=== PATIENT | female | born 1930 | race Hispanic/Latino ===

== ENCOUNTER 2016-10-29 07:39 | Emergency (ER) | payer MEDICARE ==
[2016-10-29 07:53] VITALS: TEMP 97.9
[2016-10-29 08:48] VITALS: BP 120/74; PULSE 72; RESP 16; O2SAT 98
--- NOTE | 2016-10-29 09:07 | C.PDOC ---
History Of Present Illness 86 yr old female presents to the ER with complaints of right lower leg laceration sustained yesterday. Patient states she was walking and ran into something. States part of the wound continues to bleed on and off. Reports she is on Xarelto for A-FIb. Last tetanus was 2 years ago. Denies fever, leg pain, weakness or numbness. Time Seen by Provider: 10/29/16 08:40 Chief Complaint (Nursing): Abnormal Skin Integrity History Per: Patient History/Exam Limitations: no limitations Onset/Duration Of Symptoms: Days (1) Current Symptoms Are (Timing): Better Past Medical History Reviewed: Historical Data, Nursing Documentation, Vital Signs Vital Signs: Last Vital Signs Temp 97.9 F 10/29/16 07:52 Pulse 72 10/29/16 08:47 Resp 16 10/29/16 08:47 BP 120/74 10/29/16 08:47 Pulse Ox 98 10/29/16 09:20 - Medical History PMH: Cardia Arrhythmia, Diverticulitis (Diverticulosis), Fractures (L3-L4), HTN , Osteoporosis Family History: States: No Known Family Hx - Social History Hx Tobacco Use: No Hx Alcohol Use: Yes Hx Substance Use: No - Immunization History Hx Tetanus Toxoid Vaccination: Yes (2014) Hx Influenza Vaccination: Yes (01/2016) Hx Pneumococcal Vaccination: No Review Of Systems Except As Marked, All Systems Reviewed And Found Negative. Constitutional: Negative for: Fever Musculoskeletal: Negative for: Leg Pain Skin: Positive for: Other ((+) Laceration to the right lower leg.) Neurological: Negative for: Weakness, Numbness Physical Exam - Physical Exam Appears: Well, Non-toxic, No Acute Distress Skin: Warm, Dry, Other ((+) Right Leg - 2cm superficial laceration, most distal part with ozzing blood easyily controlled with minimal pressure. ) Head: Atraumatic, Normacephalic Chest: Symmetrical, No Tenderness Cardiovascular: Rhythm Regular, Rhythm Irregular Respiratory: Normal Breath Sounds, No Rales, No Rhonchi, No Wheezing Extremity: Normal ROM, No Calf Tenderness, No Deformity, No Swelling Pulses: Left Dorsalis Pedis: Normal, Right Dorsalis Pedis: Normal Neurological/Psych: Oriented x3, Normal Speech, Normal Motor ED Course And Treatment O2 Sat by Pulse Oximetry: 98 Progress Note: Applied dermabond to the area of bleeding. Bleeding had stopped. Wound was rechecked in 20 minuets later with no signs of active bleeding. Steri strips and bandages were applied. Patient instructed to follow up with PMD for a wound check. Disposition - Disposition Referrals: Candelario Bradshaw, [Non-Staff] - Disposition: HOME/ ROUTINE Disposition Time: 08:30 Condition: GOOD Additional Instructions: Thank you for letting us take care of you today. Your provider was Dr. Landaverde. You were treated for a leg laceration. The emergency medical care you received today was directed at your acute symptoms. If you were prescribed any medication, please fill it and take as directed. It may take several days for your symptoms to resolve. Return to the Emergency Department if your symptoms worsen, do not improve, or if you have any other problems. Please contact your doctor or call one of the physicians/clinics you have been referred to that are listed on the Patient Visit Information form that is included in your discharge packet. Bring any paperwork you were given at discharge with you along with any medications you are taking to your follow up visit. Our treatment cannot replace ongoing medical care by a primary care provider (PCP) outside of the emergency department. Thank you for allowing the [facility] team to be part of your care today. Follow up with your doctor in 2 days for a wound check and re-evaluation. Prescriptions: Cephalexin [cephalexin] 500 mg PO BID #10 cap Instructions: Laceration (ED) - Clinical Impression Clinical Impression: Laceration - Scribe Statement The provider has reviewed the documentation as recorded by the Al Hagen Provider Attestation: All medical record entries made by the Al were at my direction and personally dictated by me. I have reviewed the chart and agree that the record accurately reflects my personal performance of the history, physical exam, medical decision making, and the department course for this patient. I have also personally directed, reviewed, and agree with the discharge instructions and disposition.
== END 2016-10-29 08:48 | disposition home or self-care (01) ==
LOC: C.ER 07:39
DX: S81.811A Laceration without foreign body, right lower leg, initial encounter (principal); W22.8XXA Striking against or struck by other objects, initial encounter; Y93.01 Activity, walking, marching and hiking; Y92.89 Other specified places as the place of occurrence of the external cause

== ENCOUNTER 2017-12-29 19:24 | Observation (INO) | payer MEDICARE ==
[2017-12-29] MEDS ORDERED: Tdap Vaccine 0.5 ml Vial (10-64 yrs) IM ONE ×2 (21:00→22:01)
--- NOTE | 2017-12-29 21:05 | C.PDOC ---
History Of Present Illness <Alvaro Hoyt - Last Filed: 12/29/17 22:00> <Sonu Finney - Last Filed: 12/29/17 23:36> Patient is a 87 year old female with history of A fib, currently on Eliquis who was brought in by ambulance for evaluation. She is unable to tell me what happened, unsure if she lost consciousness or fell while taking recycling down to the cellar. She states she just remembers waking up in the ambulance. Now complains of pain around her right eye, pain along her jaw on the right side, pain to her left hand and pain and swelling on both her knees. She denies recent sickness, fever, chills, chest pain, shortness of breath, abdominal pain , nausea, vomiting, hip pain, ankle pain. (Alvaro Hoyt) <Alvaro Hoyt - Last Filed: 12/29/17 22:00> <Sonu Finney - Last Filed: 12/29/17 23:36> - HPI Time Seen by Provider: 12/29/17 20:27 Chief Complaint (Nursing): Trauma Past Medical History - Medical History PMH: Atrial Fibrillation, Cardia Arrhythmia, Diverticulitis (Diverticulosis), Fractures (L3-L4), HTN, Osteoporosis Other Surgeries: cyst removal on left breast Family History: States: Unknown Family Hx - Social History Hx Tobacco Use: No Hx Alcohol Use: Yes Hx Substance Use: No - Immunization History Hx Tetanus Toxoid Vaccination: Yes (2014) Hx Influenza Vaccination: Yes (01/2016) Hx Pneumococcal Vaccination: No <Alvaro Hoyt - Last Filed: 12/29/17 22:00> Vital Signs: Last Vital Signs Temp 98.7 F 12/29/17 19:43 Pulse 75 12/29/17 22:18 Resp 18 12/29/17 22:18 BP 161/94 H 12/29/17 22:18 Pulse Ox 95 12/29/17 22:18 Review Of Systems Constitutional: Negative for: Fever, Chills, Sweats Cardiovascular: Negative for: Chest Pain, Palpitations Respiratory: Negative for: Shortness of Breath Gastrointestinal: Negative for: Nausea, Vomiting, Abdominal Pain Musculoskeletal: Positive for: Hand Pain Skin: Negative for: Rash <Alvaro Hoyt - Last Filed: 12/29/17 22:00> Physical Exam - Physical Exam Appears: No Acute Distress, Other (Obvious ecchymosis to right periorbital region and chin) Skin: Warm, Dry Head: Tenderness, Swelling (Swelling, tenderness, ecchymosis to the right periorbital region. No proptosis or hyphema of right orbit. Left periorbital region nonecchymotic, nontender, nonedematous. Edema, ecchymosis and tenderness to right mandible and chin. Able to open and close mouth fully. ) Eye(s): bilateral: PERRL, EOMI Nose: No Deformity, No Tenderness Oral Mucosa: Moist Lips: No Swelling, No Laceration Teeth: Dentures Neck: No Midline Cervical Tenderness, No Step Off Deformity Chest: Symmetrical, No Deformity, No Tenderness, No Ecchymosis Respiratory: Normal Breath Sounds, No Rales, No Rhonchi, No Stridor, No Wheezing Gastrointestinal/Abdominal: Bowel Sounds, Soft, No Tenderness Back: No Vertebral Tenderness, No Paraspinal Tenderness Extremity: Tenderness (Right knee: tenderness and edema with abrasion. Left knee : mild edema present, no abrasion. Bilateral hips: nontender. Bilateral ankle: nontender, nonedematous, good ROM. ), No Calf Tenderness, Capillary Refill (<2 secs ) Extremity: Left: Other (Laceration on palmar aspect of left 3rd digit along MCP joint, extending slightly upward into the proximal phalanx), Right: Bony Point Tenderness, Bilateral: Hips Non-Tender, Pelvis-Stable Pulses: Left Dorsalis Pedis: Normal, Right Dorsalis Pedis: Normal Neurological/Psych: Other (Oriented to person, place, but not to time. ) Disoriented To: Time <Alvaro Hoyt - Last Filed: 12/29/17 22:00> ED Course And Treatment Interpretation Of ECG: Sinus rhythm at 68 with PACs, similar to prior EKG, no ST -T wave changes. O2 Sat by Pulse Oximetry: 100 - Radiology CXR: Interpreted by Me (no pneumonia, no pneumothorax, no fracture. ) - Other Rad Bilateral knees X-Ray: Interpreted by Me Interpretation: No fracture, no dislocation Left hand X-Ray: Interpreted by Me Interpretation: No fracture, dislocation. <Alvaro Hoyt - Last Filed: 12/29/17 22:00> - Laboratory Results Result Diagrams: 12/29/17 21:55 12/29/17 21:55 <Sonu Finney - Last Filed: 12/29/17 23:36> Medical Decision Making <Alvaro Hoyt - Last Filed: 12/29/17 22:00> <Sonu Finney - Last Filed: 12/29/17 23:36> Medical Decision Making: CT head, CT maxillofacial bones, X rays of knees, X ray of left hand to rule out fracture. TDAP given. Tylenol 650mg PO for pain. EKG, CXR, CBC, CMP, UA, Coags for syncope workup. (Alvaro Hoyt) 22:22 CT Head FINDINGS: Brain: Moderate cerebral volume loss and decrease in attenuation of the periventricular white matter from microangiopathic change. The brain otherwise with normal woods-white matter differentiation, without acute intracranial hemorrhage, edema or mass effect. Midline shift: No midline shift is present. Ventricles: Unremarkable. No ventriculomegaly. Bones/joints: No calvarial fractures are visualized. Soft tissues: Soft tissue contusion of the right upper face periorbital region and right forehead. Sinuses: Minimal fluid in the right maxillary sinus. Mastoid air cells: Unremarkable as visualized. No mastoid effusion. Orbits: The orbits are normal. There is no evidence of retrobulbar hemorrhage. IMPRESSION: No acute intracranial findings are present. Incidental and other non-acute findings as above. Multifocal soft tissue swelling consistent with posttraumatic contusion. 22:26 CT Maxillofacial FINDINGS: Bones/joints: No definite mandibular or other facial bone fractures are seen. Soft tissues: Soft tissue contusion of the right vertebral region and right forehead. Soft tissue hematoma associated with the right lower face anterior to the right chin. Orbits: There is no evidence of retrobulbar hemorrhage. Sinuses: Minimal fluid at the right maxillary sinus with associated mild mucosal thickening. IMPRESSION: No facial fractures. Multifocal soft tissue contusion and hematoma formation consistent with posttraumatic injury. Seen and examined with resident. 87 y/o F c LOC at home, awoke in ambulance with trauma. On exam, periorbital edema, knee edema, and L hand 3rd digit laceration. Dr. Gordon accepts patient to Medical service for syncope evaluation. Dr. Roque consulted for finger laceration, recommends calling residential installer for closure. (Sonu Finney) Disposition <Alvaro Hoyt - Last Filed: 12/29/17 22:00> - Disposition Disposition Time: 22:27 <Sonu Finney - Last Filed: 12/29/17 23:36> - Disposition Disposition: HOSPITALIZED Condition: FAIR Forms: [facility] ([place]) - Clinical Impression Clinical Impression: Laceration, Syncope Critical Care Time
[2017-12-29 21:58] LABS: BASO # 0.1 K/uL (0.0-0.2); BASO % 0.5 % (0.0-2.0); EOS % 0.3 % (0.0-4.0); HEMOGLOBIN 14.1 g/dL (11.0-16.0); LYMPH # 1.4 K/uL (1.0-4.3); LYMPH % 8.1 % (20.0-40.0); MEAN CELL VOLUME 91.5 fL (81.0-99.0); MEAN CORPUSCULAR HEMOGLOBIN 30.9 pg (27.0-31.0); MEAN CORPUSCULAR HGB CONC 33.8 g/dL (33.0-37.0); MEAN PLATELET VOLUME 8.3 fL (7.2-11.7); MONO # 0.8 K/uL (0.0-0.8); MONO % 4.9 % (0.0-10.0); NEUT # 14.7 K/uL (1.8-7.0); NEUT % 86.2 % (50.0-75.0); PLATELET COUNT 242 K/uL (130-400); RBC 4.57 Mil/uL (3.80-5.20); RED CELL DISTRIBUTION WIDTH 13.3 % (11.5-14.5)
[2017-12-29 21:59] LABS: WHITE BLOOD COUNT 17.1 K/uL (4.8-10.8)
[2017-12-29 22:06] LABS: INR 1.1; PROTHROMBIN TIME 11.6 SECONDS (9.7-12.2)
[2017-12-29 22:15] LABS: ALB/GLOB RATIO 1.6 (1.0-2.1); ALBUMIN 4.2 g/dL (3.5-5.0); ALT/SGPT 30 U/L (9-52); AST/SGOT 37 U/L (14-36); BLOOD UREA NITROGEN 17 mg/dL (7-17); CALCIUM 9.1 mg/dl (8.6-10.4); GFR NON-AFRICAN AMERICAN > 60
[2017-12-29 22:27] LABS: EOSINOPHIL 2 % (0-4); LYMPHOCYTE 7 % (20-40); MONOCYTE 3 % (0-10); NEUTROPHIL 88 % (50-75); PLATELET ESTIMATE NORMAL (NORMAL); TOTAL CELLS COUNTED 100
[2017-12-29] MEDS ORDERED: Lidocaine 1% Inj (20ml) INFIL ONE (22:40)
[2017-12-30 02:24] LABS: URINE BACTERIA RARE (<OCC); URINE BILIRUBIN NEGATIVE (NEGATIVE); URINE BLOOD NEGATIVE (NEGATIVE); URINE CLARITY Clear (Clear); URINE COLOR Yellow (YELLOW); URINE GLUCOSE (UA) NORMAL (Normal); URINE LEUKOCYTE ESTERASE NEG Leu/uL (Negative); URINE PROTEIN NEGATIVE (NEGATIVE); URINE UROBILINOGEN NORMAL mg/dL (0.2-1.0)
--- NOTE | 2017-12-30 02:33 | CP.PCM.HP ---
History of Present Illness - History of Present Illness History of Present Illness: CC: fall HPI: 87 F with a PMH of rheumatic heart disease, Afib, Rheumatoid arthritis, Right pelvic fracture, and HTN presents to the ED for a fall. Patient states that she was taking out the recycling around 6:30pm when she tripped and fell down the stairs. Patient states she had lost consciousness during the fall and only regained it on the ambulance ride and again in the ED. Patient states that from what she can recall, she fell from the 4th or 5th step of her porch. Patient states she was told that her neighbor had seen her fall and called the ambulance. In the ED, patient complains of right knee pain. On examination patient has bruising of the right eye, right jaw, laceration of her middle third digit of the left hand, and a hematoma on her right knee. Patient states she has a hard time opening her right eye due to the swelling. Patient denies any sensation loss or weakness of the lacerated left middle finger. Patient does state she has a slight headache from the fall, but does not have any dizziness or blurry vision. On examination, patient denies fever, chills, nausea , vomiting, diarrhea, abdominal pain, changes in urinary or bowel habits, SOB, chest pain, and chest palpitations. Cardio: Dr. Felipe Allergies: NKDA, sensitive to strong fragrances PMH: Rheumatic heart disease, Afib, rheumatoid arthritis, Right pelvic fracture , and HTN PSHx: Cyst removal from the Left breast x2 Social: patient denies smoking and drug use; patient drink alcohol- 1 glass of wine on the weekend Family Hx: none Meds: Elliquis 2.5mg BID, losartan (which she stopped taking in September), Vitamins ( Centrum Silver), Calcium and Vitamin D supplements Present on Admission - Present on Admission Any Indicators Present on Admission: No History of DVT/PE: No History of Uncontrolled Diabetes: No Urinary Catheter: No Decubitus Ulcer Present: No Review of Systems - Constitutional Constitutional: absent: Chills, Fever - EENT Eyes: Pain (right eye). absent: Blurred Vision Nose/Mouth/Throat: Other (right side of jaw pain ) - Cardiovascular Cardiovascular: absent: Chest Pain, Chest Pain with Activity, Dyspnea, Palpitations - Respiratory Respiratory: absent: Dyspnea - Gastrointestinal Gastrointestinal: absent: Constipation, Diarrhea, Nausea, Vomiting - Genitourinary Genitourinary: absent: Dysuria, Hematuria - Musculoskeletal Musculoskeletal: Myalgias Additional comments: right knee pain left third digit and hand pain - Integumentary Integumentary: Swelling Additional comments: right eye ecchymosis right side of jaw ecchymosis right knee ecchymosis and edema left hand third digit laceration - Neurological Neurological: absent: Dizziness, Weakness Past Patient History - Infectious Disease Hx of Infectious Diseases: None - Past Medical History & Family History Past Medical History?: Yes - Past Social History Smoking Status: Never Smoked - CARDIAC Hx Atrial Fibrillation: Yes Hx Cardia Arrhythmia: Yes Hx Hypertension: Yes - PULMONARY Hx Respiratory Disorders: No - NEUROLOGICAL Hx Neurological Disorder: No - HEENT Hx HEENT Problems: Yes Hx Cataracts: Yes - ENDOCRINE/METABOLIC Hx Endocrine Disorders: No - HEMATOLOGICAL/ONCOLOGICAL Hx Blood Disorders: No - INTEGUMENTARY Hx Dermatological Problems: No - MUSCULOSKELETAL/RHEUMATOLOGICAL Hx Fractures: Yes (L3-L4) Hx Osteoporosis: Yes - GASTROINTESTINAL Hx Diverticulitis: Yes (Diverticulosis) - GENITOURINARY/GYNECOLOGICAL Hx Genitourinary Disorders: No - PSYCHIATRIC Hx Substance Use: No - SURGICAL HISTORY Hx Surgeries: Yes Hx Breast Biopsy: Yes (Left side) Hx Orthopedic Surgery: Yes (Pelvic Fx) - ANESTHESIA Hx Anesthesia: Yes Hx Anesthesia Reactions: No Meds Allergies/Adverse Reactions: Allergies Allergy/AdvReac Type Severity Reaction Status Date / Time No Known Allergies Allergy Verified 12/29/17 19:40 Physical Exam - Constitutional Appears: Non-toxic, No Acute Distress - Head Exam Head Exam: NORMAL INSPECTION, NORMOCEPHALIC. absent: ATRAUMATIC (right eye ecchymosis and right side of jaw ecchymosis and edema) - Eye Exam Eye Exam: EOMI, Periorbital swelling, Periorbital tenderness (periorbital ecchymosis). absent: Normal appearance - Respiratory Exam Respiratory Exam: Clear to Auscultation Bilateral, NORMAL BREATHING PATTERN. absent: Rales, Rhonchi, Wheezes, Stridor - Cardiovascular Exam Cardiovascular Exam: REGULAR RHYTHM, RRR, +S1, +S2 - GI/Abdominal Exam GI & Abdominal Exam: Normal Bowel Sounds, Soft. absent: Tenderness - Extremities Exam Extremities exam: Positive for: tenderness. Negative for: normal inspection Additional comments: right knee ecchymosis and edema left knee ecchymosis left hand third digit laceration - Neurological Exam Neurological exam: Alert, Oriented x3 - Psychiatric Exam Psychiatric exam: Normal Affect, Normal Mood - Skin Skin Exam: Dry, Warm Additional comments: multiple ecchymosis Results - Vital Signs Recent Vital Signs: Last Vital Signs Temp 98.5 F 12/30/17 02:11 Pulse 90 12/30/17 02:11 Resp 24 12/30/17 02:11 BP 165/61 H 12/30/17 02:11 Pulse Ox 95 12/30/17 02:11 - Labs Result Diagrams: 12/29/17 21:55 12/29/17 21:55 Labs: Laboratory Results - last 24 hr 12/29/17 12/29/17 12/29/17 19:46 21:55 21:55 WBC 17.1 H D RBC 4.57 Hgb 14.1 Hct 41.8 MCV 91.5 MCH 30.9 MCHC 33.8 RDW 13.3 Plt Count 242 MPV 8.3 Neut % (Auto) 86.2 H Lymph % (Auto) 8.1 L Cotton % (Auto) 4.9 Eos % (Auto) 0.3 Baso % (Auto) 0.5 Neut # (Auto) 14.7 H Lymph # (Auto) 1.4 Cotton # (Auto) 0.8 Eos # (Auto) 0.0 Baso # (Auto) 0.1 Neutrophils % (Manual) 88 H Lymphocytes % (Manual) 7 L Monocytes % (Manual) 3 Eosinophils % (Manual) 2 Platelet Estimate Normal PT 11.6 INR 1.1 APTT 34 Sodium Potassium Chloride Carbon Dioxide Anion Gap BUN Creatinine Est GFR ( Amer) Est GFR (Non-Af Amer) POC Glucose (mg/dL) 101 Random Glucose Calcium Phosphorus Magnesium Total Bilirubin AST ALT Alkaline Phosphatase Troponin I Total Protein Albumin Globulin Albumin/Globulin Ratio 12/29/17 21:55 WBC RBC Hgb Hct MCV MCH MCHC RDW Plt Count MPV Neut % (Auto) Lymph % (Auto) Cotton % (Auto) Eos % (Auto) Baso % (Auto) Neut # (Auto) Lymph # (Auto) Cotton # (Auto) Eos # (Auto) Baso # (Auto) Neutrophils % (Manual) Lymphocytes % (Manual) Monocytes % (Manual) Eosinophils % (Manual) Platelet Estimate PT INR APTT Sodium 139 Potassium 3.8 Chloride 101 Carbon Dioxide 25 Anion Gap 17 BUN 17 Creatinine 0.7 Est GFR ( Amer) > 60 Est GFR (Non-Af Amer) > 60 POC Glucose (mg/dL) Random Glucose 125 H Calcium 9.1 Phosphorus 3.3 Magnesium 1.7 Total Bilirubin 0.6 AST 37 H ALT 30 Alkaline Phosphatase 63 Troponin I 0.0750 Total Protein 6.9 Albumin 4.2 Globulin 2.7 Albumin/Globulin Ratio 1.6 Assessment & Plan - Assessment and Plan (Free Text) Assessment: S/P Fall head CT: no acute findings Tylenol 650mg prn for pain Facial Contusion f/u maxillofacial CT Right Knee Contusion f/u knee xray f/u knee CT Left Hand Laceration f/u hand xray Surgery, Dr. Roque consulted, help appreciated Afib hold home med eliquis 2.5mg po bid Cardiology consulted, Dr. Felipe, help appreciated Prophylaxis No chemical anticoagulation no scds due to LE injury Heart healthy diet Management as per Dr. Gordon
--- NOTE | 2017-12-30 02:42 | CP.PCM.CON ---
History of Present Illness - History of Present Illness History of Present Illness: Hand surgery consult for Dr. Roque Consulted for: L third finger laceration Pt is an 87F who was walking down stairs outside after taking out her recycling , and the next thing she remembers is waking up at the bottom the stairs, with several contusions and a laceration of the palmar surface of her third finger, over the MCP. Patient has no recollection of falling, or how she injured her finger. Patient denies any numbness or weakness of the finger, though she admits a chronic issue of her fingers locking in flexion and having to be manually pushed into extension. Patient states that she has had mechanical falls before, but never to this extent. XRs were performed which did not reveal any foreign objects in the laceration PMH: Afib on eliquis, HTN PSH: Breast biopsy x2--non-malignant ALL: NKDA Social: denies any history of any substances Review of Systems - Review of Systems All systems: reviewed and no additional remarkable complaints except (as per HPI ) Past Patient History - Infectious Disease Hx of Infectious Diseases: None - Past Medical History & Family History Past Medical History?: Yes - Past Social History Smoking Status: Never Smoked Alcohol: None Drugs: Denies - CARDIAC Hx Atrial Fibrillation: Yes Hx Cardia Arrhythmia: Yes Hx Hypertension: Yes - PULMONARY Hx Respiratory Disorders: No - NEUROLOGICAL Hx Neurological Disorder: No - HEENT Hx HEENT Problems: Yes Hx Cataracts: Yes - ENDOCRINE/METABOLIC Hx Endocrine Disorders: No - HEMATOLOGICAL/ONCOLOGICAL Hx Blood Disorders: No - INTEGUMENTARY Hx Dermatological Problems: No - MUSCULOSKELETAL/RHEUMATOLOGICAL Hx Fractures: Yes (L3-L4) Hx Osteoporosis: Yes - GASTROINTESTINAL Hx Diverticulitis: Yes (Diverticulosis) - GENITOURINARY/GYNECOLOGICAL Hx Genitourinary Disorders: No - PSYCHIATRIC Hx Substance Use: No - SURGICAL HISTORY Hx Surgeries: Yes Hx Breast Biopsy: Yes (Left side) Hx Orthopedic Surgery: Yes (Pelvic Fx) - ANESTHESIA Hx Anesthesia: Yes Hx Anesthesia Reactions: No Meds Allergies/Adverse Reactions: Allergies Allergy/AdvReac Type Severity Reaction Status Date / Time No Known Allergies Allergy Verified 12/29/17 19:40 - Medications Medications: Current Medications Acetaminophen (Tylenol 325mg Tab) 650 mg PO Q6 PRN PRN Reason: Pain, moderate (4-7) Physical Exam - Constitutional Appears: Well, Non-toxic, No Acute Distress - Head Exam Additional comments: Large ecchymosis over right orbit and jaw - Eye Exam Eye Exam: EOMI, Periorbital swelling (right), PERRL. absent: Conjunctival injection, Nystagmus, Scleral icterus Pupil Exam: PERRL - ENT Exam ENT Exam: Mucous Membranes Moist, Normal Oropharynx - Respiratory Exam Respiratory Exam: NORMAL BREATHING PATTERN. absent: Accessory Muscle Use, Respiratory Distress - Cardiovascular Exam Cardiovascular Exam: RRR - GI/Abdominal Exam GI & Abdominal Exam: Soft. absent: Distended, Tenderness - Extremities Exam Extremities exam: Positive for: full ROM. Negative for: calf tenderness, pedal edema Additional comments: Left third finger with laceration over the MCP palmar surface through the skin and subcutaneous tissue extending circumferentially towards but not reaching the dorsal finger, with two extensions of the laceration on the palmar surface of the digit extending distally approximately 1cm. no visible tendon exposure, normal range of motion, motor strength intact, sensation intact, normal capillary refill, no active bleeding. large swelling and ecchymosis with blood oozing from a laceration of the skin over the right knee - Back Exam Back exam: absent: CVA tenderness (L), CVA tenderness (R), paraspinal tenderness , vertebral tenderness Additional comments: no gross deformities of the cervical, thoracic, or lumbar spine - Neurological Exam Neurological exam: Alert, Oriented x3 - Psychiatric Exam Psychiatric exam: Normal Affect, Normal Mood - Skin Skin Exam: Dry, Intact, Normal Color, Warm Results - Vital Signs Recent Vital Signs: Last Vital Signs Temp 98.5 F 12/30/17 02:11 Pulse 90 12/30/17 02:11 Resp 24 12/30/17 02:11 BP 165/61 H 12/30/17 02:11 Pulse Ox 95 12/30/17 02:11 - Labs Result Diagrams: 12/29/17 21:55 12/29/17 21:55 Labs: Laboratory Results - last 24 hr 12/29/17 12/29/17 12/29/17 19:46 21:55 21:55 WBC 17.1 H D RBC 4.57 Hgb 14.1 Hct 41.8 MCV 91.5 MCH 30.9 MCHC 33.8 RDW 13.3 Plt Count 242 MPV 8.3 Neut % (Auto) 86.2 H Lymph % (Auto) 8.1 L [place] % (Auto) 4.9 Eos % (Auto) 0.3 Baso % (Auto) 0.5 Neut # (Auto) 14.7 H Lymph # (Auto) 1.4 [place] # (Auto) 0.8 Eos # (Auto) 0.0 Baso # (Auto) 0.1 Neutrophils % (Manual) 88 H Lymphocytes % (Manual) 7 L Monocytes % (Manual) 3 Eosinophils % (Manual) 2 Platelet Estimate Normal PT 11.6 INR 1.1 APTT 34 Sodium Potassium Chloride Carbon Dioxide Anion Gap BUN Creatinine Est GFR ( Amer) Est GFR (Non-Af Amer) POC Glucose (mg/dL) 101 Random Glucose Calcium Phosphorus Magnesium Total Bilirubin AST ALT Alkaline Phosphatase Troponin I Total Protein Albumin Globulin Albumin/Globulin Ratio 12/29/17 21:55 WBC RBC Hgb Hct MCV MCH MCHC RDW Plt Count MPV Neut % (Auto) Lymph % (Auto) [place] % (Auto) Eos % (Auto) Baso % (Auto) Neut # (Auto) Lymph # (Auto) [place] # (Auto) Eos # (Auto) Baso # (Auto) Neutrophils % (Manual) Lymphocytes % (Manual) Monocytes % (Manual) Eosinophils % (Manual) Platelet Estimate PT INR APTT Sodium 139 Potassium 3.8 Chloride 101 Carbon Dioxide 25 Anion Gap 17 BUN 17 Creatinine 0.7 Est GFR ( Amer) > 60 Est GFR (Non-Af Amer) > 60 POC Glucose (mg/dL) Random Glucose 125 H Calcium 9.1 Phosphorus 3.3 Magnesium 1.7 Total Bilirubin 0.6 AST 37 H ALT 30 Alkaline Phosphatase 63 Troponin I 0.0750 Total Protein 6.9 Albumin 4.2 Globulin 2.7 Albumin/Globulin Ratio 1.6 Assessment & Plan - Assessment and Plan (Free Text) Assessment: 87F with traumatic laceration of the subcutaneous tissue of the left third finger with no neuromotor defecits Plan: Partial laceration repair at bedside Covered wound with xeroform gauze, 4x4, and splinted finger in extension-- recommend continued splinting in extension PRN pain medication Continue to monitor neurovascular status Further evaluation by Dr. Roque in the AM--further recs per her Discussed with Dr. Jude Nova, PGY2
--- NOTE | 2017-12-30 03:33 | PCM.PROC ---
Procedures Attestation:: I certify that I have explained the specified Operation(s) or Procedure(s), risks, benefits and reasonable alternatives to the Patient and/or other person responsible. The opportunity was given to ask questions and all questions answered - Laceration lidocaine 1% involves muscle layer irregular irrigated extensively left other 4-0 other local infiltration simple, interrupted Site: other (third finger) Side (if applicable): left Description: linear, irregular, clean Depth: involves muscle layer Anesthesia used: lidocaine 1% Anesthesia technique: local infiltration Amount (mLs): 12 Pre-repair: wound explored, irrigated extensively, deep structures intact Skin layer closed with: other (polypropolene) Number of sutures: 9 (5 medial, 4 lateral edges) Technique: simple, interrupted
[2017-12-30 05:05] LABS: BASO % 0.2 % (0.0-2.0); HEMOGLOBIN 12.9 g/dL (11.0-16.0); LYMPH # 1.1 K/uL (1.0-4.3); LYMPH % 6.7 % (20.0-40.0); MEAN CELL VOLUME 90.9 fL (81.0-99.0); MEAN CORPUSCULAR HEMOGLOBIN 30.5 pg (27.0-31.0); MEAN CORPUSCULAR HGB CONC 33.6 g/dL (33.0-37.0); MEAN PLATELET VOLUME 8.6 fL (7.2-11.7); MONO # 0.9 K/uL (0.0-0.8); MONO % 5.3 % (0.0-10.0); NEUT # 14.2 K/uL (1.8-7.0); NEUT % 87.8 % (50.0-75.0); PLATELET COUNT 195 K/uL (130-400); RBC 4.24 Mil/uL (3.80-5.20); RED CELL DISTRIBUTION WIDTH 13.2 % (11.5-14.5); WHITE BLOOD COUNT 16.2 K/uL (4.8-10.8)
[2017-12-30 05:33] LABS: ALB/GLOB RATIO 1.4 (1.0-2.1); ALBUMIN 3.7 g/dL (3.5-5.0); ALT/SGPT 31 U/L (9-52); AST/SGOT 37 U/L (14-36); BLOOD UREA NITROGEN 14 mg/dL (7-17); CALCIUM 8.4 mg/dl (8.6-10.4); GFR NON-AFRICAN AMERICAN > 60
[2017-12-30 06:51] LABS: BANDS 8 % (0-2); LYMPHOCYTE 5 % (20-40); MONOCYTE 4 % (0-10); NEUTROPHIL 83 % (50-75); PLATELET ESTIMATE NORMAL (NORMAL); TOTAL CELLS COUNTED 100
--- NOTE | 2017-12-30 08:33 | CT ---
Date of service: 12/29/2017 PROCEDURE: CT HEAD WITHOUT CONTRAST. HISTORY: trauma COMPARISON: None available. TECHNIQUE: Axial computed tomography images were obtained through the head/brain without intravenous contrast. Radiation dose: Total exam DLP = 777 mGy-cm. This CT exam was performed using one or more of the following dose reduction techniques: Automated exposure control, adjustment of the mA and/or kV according to patient size, and/or use of iterative reconstruction technique. FINDINGS: HEMORRHAGE: No intracranial hemorrhage. BRAIN: Moderate cerebral volume loss with decreased attenuation of the periventricular white matter suggestive for chronic microangiopathic change. Punctate left basal ganglia calcification. Punctate calcification in the posterior left cerebellum. VENTRICLES: Prominent. CALVARIUM: Unremarkable. PARANASAL SINUSES: Small amount of fluid in the right maxillary sinus. MASTOID AIR CELLS: Unremarkable as visualized. No inflammatory changes. OTHER FINDINGS: Soft tissue contusion of the right upper face and periorbital region and right forehead. In addition, there is a punctate radiopaque density noted within the soft tissues in the right periorbital region as demonstrated on series 2, image 4. Clinical correlation. Additional radiopaque densities in the bilateral orbital globes are of uncertain clinical etiology. Clinical correlation. IMPRESSION: No acute intracranial abnormality. Multifocal soft tissue swelling consistent with posttraumatic contusion. In addition, there is a punctate radiopaque density noted within the soft tissues in the right periorbital region as demonstrated on series 2, image 4. Clinical correlation. Additional radiopaque densities in the bilateral orbital globes are of uncertain clinical etiology. Clinical correlation. Additional findings as above. If symptoms persists, consider correlation with MRI. These findings were preliminarily reported at 10:19 p.m. on 12/29/[address]Navid Lynn from [employer].
--- NOTE | 2017-12-30 10:09 | CT ---
Date of service: 12/29/2017 PROCEDURE: CT MAXILLOFACIAL BONES WITHOUT CONTRAST HISTORY: trauma COMPARISON: None available. TECHNIQUE: Contiguous axial CT images of the maxillofacial bones were obtained. Coronal and sagittal reformats were generated. Radiation dose: Total exam DLP = 707.18 mGy-cm. This CT exam was performed using one or more of the following dose reduction techniques: Automated exposure control, adjustment of the mA and/or kV according to patient size, and/or use of iterative reconstruction technique. FINDINGS: NASAL BONES: Unremarkable. ORBITS: No orbital fracture. Orbital floor and lamina papyracea are intact bilaterally. No intraorbital hemorrhage. The globes are rounded and symmetric. Extensive preorbital soft tissue swelling involving predominantly the inferior palpebrum. PARANASAL SINUSES/ MASTOIDS: Small amount of dependent fluid in the right maxillary and sphenoid sinus common nonspecific. MAXILLA: No maxillary fracture. Minimal right pre maxillary soft tissue swelling. MANDIBLE/ TEMPOROMANDIBULAR JOINTS: No mandibular fracture. Acute soft tissue hematoma right pre mandibular with extensive adjacent soft tissue swelling. SKULL BASE: Unremarkable. TEMPORAL BONES: Middle ears and mastoid grossly unremarkable. OTHER FINDINGS: None. IMPRESSION: No acute fracture. Acute hematoma right pre mandibular. Minimal of soft tissue swelling right inferior palpebrum and over right maxilla. The The preliminary findings for this examination were reported by [facility] at 10:26 p.m. on 12/29/2017. There is concurrence of this report with the preliminary findings.
--- NOTE | 2017-12-30 10:43 | CP.PCM.PN ---
<Elieser Makcay - Last Filed: 12/30/17 19:30> Subjective - Date & Time of Evaluation Date of Evaluation: 12/30/17 Time of Evaluation: 10:43 - Subjective Subjective: Pt seen and examines at bedside. Pt reports no acute events overnight. Pt says the knee swelling has decreased greatly. Pt reports no cp, sob, f/c, n/v Objective - Vital Signs/Intake and Output Vital Signs (last 24 hours): Temp Pulse Resp BP Pulse Ox 98 F 77 18 126/73 98 12/30/17 10:13 12/30/17 09:40 12/30/17 09:40 12/30/17 09:40 12/30/17 09:40 - Medications Medications: Current Medications Acetaminophen (Tylenol 325mg Tab) 650 mg PO Q6 PRN PRN Reason: Pain, moderate (4-7) - Labs Labs: 12/30/17 05:01 12/30/17 05:01 PT 11.6 SECONDS (9.7-12.2) 12/29/17 21:55 INR 1.1 12/29/17 21:55 APTT 34 SECONDS (21-34) 12/29/17 21:55 - Constitutional Appears: Non-toxic, No Acute Distress - Head Exam Additional comments: right husam orbital erythema and echymosis R frontal/ maxillary bruising Mandibular bruising no protruding bony prominences. tender to palpation - Eye Exam Eye Exam: EOMI, Normal appearance, Periorbital swelling, PERRL. absent: Scleral icterus Pupil Exam: NORMAL ACCOMODATION - ENT Exam ENT Exam: Mucous Membranes Moist, Normal Exam - Neck Exam Neck Exam: Normal Inspection - Respiratory Exam Respiratory Exam: Clear to Ausculation Bilateral, NORMAL BREATHING PATTERN. absent: Rhonchi, Wheezes, Respiratory Distress - Cardiovascular Exam Cardiovascular Exam: RRR, +S1, +S2. absent: Murmur - Extremities Exam Additional comments: R knee markedly greater in size than left. tender to palpation and ROM L third digit laceration. no bleeding, healing. - Back Exam Back Exam: NORMAL INSPECTION - Neurological Exam Neurological Exam: Alert, Oriented x3 - Psychiatric Exam Psychiatric exam: Normal Affect, Normal Mood - Skin Skin Exam: Dry, Warm. absent: Diaphoretic Assessment and Plan - Assessment and Plan (Free Text) Plan: S/P Fall -head CT: no acute findings -Tylenol 650mg prn for pain Facial Contusion -maxillofacial CT: acute premandibular hematoma, soft tissue swelling Right Knee Contusion -knee xray -knee CT Left Hand Laceration -hand xray -Surgery, Dr. Roque consulted, help appreciated Afib hold home med eliquis 2.5mg po bid Cardiology consulted, Dr. Felipe, help appreciated Prophylaxis No chemical anticoagulation no scds due to LE injury Heart healthy diet <Ranulfo Hermosillo - Last Filed: 12/31/17 20:00> Objective - Vital Signs/Intake and Output Vital Signs (last 24 hours): Temp Pulse Resp BP Pulse Ox 100.1 F H 109 H 20 100/61 97 12/31/17 15:03 12/31/17 15:03 12/31/17 15:03 12/31/17 15:03 12/31/17 15:03 - Medications Medications: Current Medications Acetaminophen (Tylenol 325mg Tab) 650 mg PO Q6 PRN PRN Reason: Pain, moderate (4-7) Last Admin: 12/30/17 17:22 Dose: 650 mg Apixaban (Eliquis) 2.5 mg PO BID [facility] Last Admin: 12/31/17 17:14 Dose: 2.5 mg Bacitracin (Bacitracin) 1 gm TOP DAILY [facility] Last Admin: 12/31/17 10:20 Dose: 1 applic Metoprolol Tartrate (Lopressor) 12.5 mg PO BID [facility] Last Admin: 12/31/17 17:14 Dose: 12.5 mg - Labs Labs: 12/31/17 10:44 12/31/17 10:44 PT 11.6 SECONDS (9.7-12.2) 12/29/17 21:55 INR 1.1 12/29/17 21:55 APTT 34 SECONDS (21-34) 12/29/17 21:55 Attending/Attestation - Attestation I have personally seen and examined this patient.: Yes I have fully participated in the care of the patient.: Yes I have reviewed all pertinent clinical information, including history, physical exam and plan: Yes Notes (Text): 12/31/17 20:00 This is a late entry Care of this patient was gone over in detail with the resident. Ranulfo Hermosillo D.O.
--- NOTE | 2017-12-30 10:58 | RAD ---
HISTORY: trauma COMPARISON: Chest x-ray performed 10/12/14 TECHNIQUE: Chest, one view. FINDINGS: Examination limited by habitus. LUNGS: Biapical pleural thickening. Prominent interstitial markings. Please note that chest x-ray has limited sensitivity for the detection of pulmonary masses. PLEURA: No significant pleural effusion identified. No definite pneumothorax . CARDIOVASCULAR: Cardiomegaly. Atherosclerotic calcifications of the aorta. OSSEOUS STRUCTURES: Degenerative changes. Osseous demineralization. VISUALIZED UPPER ABDOMEN: Unremarkable. OTHER FINDINGS: None. IMPRESSION: Prominent interstitial markings. Cardiomegaly.
--- NOTE | 2017-12-30 12:37 | CP.PCM.CON ---
<Dwayne Alfonso M - Last Filed: 12/30/17 13:08> History of Present Illness - History of Present Illness History of Present Illness: PGY 1 Consult note for Neurologist Dr. Polk. 87 year F w/ PMHx of rheumatic heart disease, Afib on eliquis, Rheumatoid arthritis, Right pelvic fracture, and HTN presented s/p fall. Patient states she slipped on stair and fell down and had LOC. Pt woke up and called ambulance and was brought to ED. Patient currently does not have any active complaints and states she feels fine. Patient denies weakness, chest pain, headaches, vision changes, SOB, trouble voiding. PMHx: rheumatic heart disease, Afib on eliquis, Rheumatoid arthritis, Right pelvic fracture, and HTN Allergies: NKDA PSHx (per chart review): Cyst removal from the Left breast x2 Social: patient denies smoking and drug use; patient drink alcohol- 1 glass of wine on the weekend Family Hx: none Meds (per chart review): Elliquis 2.5mg BID, losartan (which she stopped taking in September), Vitamins (Centrum Silver), Calcium and Vitamin D supplements Review of Systems - EENT Eyes: absent: Blind Spots, Blurred Vision Ears: absent: Ear Pain, Dizziness - Cardiovascular Cardiovascular: absent: Chest Pain, Palpitations - Genitourinary Genitourinary: absent: Difficulty Urinating - Musculoskeletal Musculoskeletal: absent: Arthralgias, Myalgias Past Patient History - Infectious Disease Hx of Infectious Diseases: None - Past Medical History & Family History Past Medical History?: Yes - Past Social History Smoking Status: Never Smoked - CARDIAC Hx Atrial Fibrillation: Yes Hx Cardia Arrhythmia: Yes Hx Hypertension: Yes - PULMONARY Hx Respiratory Disorders: No - NEUROLOGICAL Hx Neurological Disorder: No - HEENT Hx HEENT Problems: Yes Hx Cataracts: Yes - ENDOCRINE/METABOLIC Hx Endocrine Disorders: No - HEMATOLOGICAL/ONCOLOGICAL Hx Blood Disorders: No - INTEGUMENTARY Hx Dermatological Problems: No - MUSCULOSKELETAL/RHEUMATOLOGICAL Hx Fractures: Yes (L3-L4) Hx Osteoporosis: Yes - GASTROINTESTINAL Hx Diverticulitis: Yes (Diverticulosis) - GENITOURINARY/GYNECOLOGICAL Hx Genitourinary Disorders: No - PSYCHIATRIC Hx Substance Use: No - SURGICAL HISTORY Hx Surgeries: Yes Hx Breast Biopsy: Yes (Left side) Hx Orthopedic Surgery: Yes (Pelvic Fx) - ANESTHESIA Hx Anesthesia: Yes Hx Anesthesia Reactions: No Meds Allergies/Adverse Reactions: Allergies Allergy/AdvReac Type Severity Reaction Status Date / Time No Known Allergies Allergy Verified 12/29/17 19:40 - Medications Medications: Current Medications Acetaminophen (Tylenol 325mg Tab) 650 mg PO Q6 PRN PRN Reason: Pain, moderate (4-7) Physical Exam - Eye Exam Eye Exam: EOMI, PERRL Pupil Exam: NORMAL ACCOMODATION, PERRL Additional comments: right eye ecchymosis right side of jaw ecchymosis - ENT Exam ENT Exam: Mucous Membranes Moist - Expanded Lower Extremities Exam Right Knee exam: ecchymosis, swelling - Neurological Exam Neurological exam: Alert, CN II-XII Intact, Oriented x3 Results - Vital Signs Recent Vital Signs: Last Vital Signs Temp 98 F 12/30/17 10:13 Pulse 77 12/30/17 09:40 Resp 18 12/30/17 09:40 BP 126/73 12/30/17 09:40 Pulse Ox 98 12/30/17 09:40 - Labs Result Diagrams: 12/30/17 05:01 12/30/17 05:01 Labs: Laboratory Results - last 24 hr 12/29/17 12/29/17 12/29/17 19:46 21:55 21:55 WBC 17.1 H D RBC 4.57 Hgb 14.1 Hct 41.8 MCV 91.5 MCH 30.9 MCHC 33.8 RDW 13.3 Plt Count 242 MPV 8.3 Neut % (Auto) 86.2 H Lymph % (Auto) 8.1 L [place] % (Auto) 4.9 Eos % (Auto) 0.3 Baso % (Auto) 0.5 Neut # (Auto) 14.7 H Lymph # (Auto) 1.4 [place] # (Auto) 0.8 Eos # (Auto) 0.0 Baso # (Auto) 0.1 Neutrophils % (Manual) 88 H Band Neutrophils % Lymphocytes % (Manual) 7 L Monocytes % (Manual) 3 Eosinophils % (Manual) 2 Platelet Estimate Normal PT 11.6 INR 1.1 APTT 34 Sodium Potassium Chloride Carbon Dioxide Anion Gap BUN Creatinine Est GFR ( Amer) Est GFR (Non-Af Amer) POC Glucose (mg/dL) 101 Random Glucose Calcium Phosphorus Magnesium Total Bilirubin AST ALT Alkaline Phosphatase Troponin I Total Protein Albumin Globulin Albumin/Globulin Ratio Urine Color Urine Clarity Urine pH Ur Specific [place] Urine Protein Urine Glucose (UA) Urine Ketones Urine Blood Urine Nitrate Urine Bilirubin Urine Urobilinogen Ur Leukocyte Esterase Urine WBC (Auto) Urine RBC (Auto) Urine Bacteria 12/29/17 12/30/17 12/30/17 21:55 02:33 05:01 WBC 16.2 H RBC 4.24 Hgb 12.9 Hct 38.5 MCV 90.9 MCH 30.5 MCHC 33.6 RDW 13.2 Plt Count 195 MPV 8.6 Neut % (Auto) 87.8 H Lymph % (Auto) 6.7 L [place] % (Auto) 5.3 Eos % (Auto) 0.0 Baso % (Auto) 0.2 Neut # (Auto) 14.2 H Lymph # (Auto) 1.1 [place] # (Auto) 0.9 H Eos # (Auto) 0.0 Baso # (Auto) 0.0 Neutrophils % (Manual) 83 H Band Neutrophils % 8 H Lymphocytes % (Manual) 5 L Monocytes % (Manual) 4 Eosinophils % (Manual) Platelet Estimate Normal PT INR APTT Sodium 139 Potassium 3.8 Chloride 101 Carbon Dioxide 25 Anion Gap 17 BUN 17 Creatinine 0.7 Est GFR ( Amer) > 60 Est GFR (Non-Af Amer) > 60 POC Glucose (mg/dL) Random Glucose 125 H Calcium 9.1 Phosphorus 3.3 Magnesium 1.7 Total Bilirubin 0.6 AST 37 H ALT 30 Alkaline Phosphatase 63 Troponin I 0.0750 Total Protein 6.9 Albumin 4.2 Globulin 2.7 Albumin/Globulin Ratio 1.6 Urine Color Yellow Urine Clarity Clear Urine pH 6.0 Ur Specific [place] 1.015 Urine Protein Negative Urine Glucose (UA) Normal Urine Ketones 1+ H Urine Blood Negative Urine Nitrate Negative Urine Bilirubin Negative Urine Urobilinogen Normal Ur Leukocyte Esterase Neg Urine WBC (Auto) < 1 Urine RBC (Auto) 3 Urine Bacteria Rare 12/30/17 05:01 WBC RBC Hgb Hct MCV MCH MCHC RDW Plt Count MPV Neut % (Auto) Lymph % (Auto) [place] % (Auto) Eos % (Auto) Baso % (Auto) Neut # (Auto) Lymph # (Auto) [place] # (Auto) Eos # (Auto) Baso # (Auto) Neutrophils % (Manual) Band Neutrophils % Lymphocytes % (Manual) Monocytes % (Manual) Eosinophils % (Manual) Platelet Estimate PT INR APTT Sodium 139 Potassium 4.1 Chloride 103 Carbon Dioxide 24 Anion Gap 16 BUN 14 Creatinine 0.6 L Est GFR ( Amer) > 60 Est GFR (Non-Af Amer) > 60 POC Glucose (mg/dL) Random Glucose 123 H Calcium 8.4 L Phosphorus 3.3 Magnesium 1.6 Total Bilirubin 0.9 AST 37 H ALT 31 Alkaline Phosphatase 45 Troponin I Total Protein 6.5 Albumin 3.7 Globulin 2.8 Albumin/Globulin Ratio 1.4 Urine Color Urine Clarity Urine pH Ur Specific [place] Urine Protein Urine Glucose (UA) Urine Ketones Urine Blood Urine Nitrate Urine Bilirubin Urine Urobilinogen Ur Leukocyte Esterase Urine WBC (Auto) Urine RBC (Auto) Urine Bacteria Assessment & Plan (1) Fall Assessment and Plan: Assessment & Plan discussed with Dr. Polk 87 year F w/ PMHx of rheumatic heart disease, Afib on eliquis, Rheumatoid arthritis, Right pelvic fracture, and HTN presented s/p fall 1) Fall - Initial CT shows no acute hemorrhage - Hold Eliquis for now - Repeat CT head w.o. contrast tomorrow 12/31 Status: Acute <Sterling,Gautami - Last Filed: 01/03/18 11:06> Results - Vital Signs Recent Vital Signs: Last Vital Signs Temp 98.2 F 01/01/18 16:00 Pulse 97 H 01/01/18 16:00 Resp 20 01/01/18 16:00 BP 109/76 01/01/18 16:00 Pulse Ox 97 01/01/18 16:00 - Labs Result Diagrams: 01/01/18 17:33 12/31/17 10:44 Assessment & Plan - Assessment and Plan (Free Text) Assessment: All medical record entries made by the resident were at my direction and personally dictated by me. I have reviewed the chart and agree that the record accurately reflects my personal performance of the history, physical exam, medical decision making, and the department course for this patient. I have also personally directed, reviewed, and agree with the discharge instructions and disposition. Neurology attending note: MIss henley has sustained multiple fractures from fall but there is no intracranial hemorrhage. Our team will follow Thank you DR polk
--- NOTE | 2017-12-30 13:25 | CP.PCM.CON ---
History of Present Illness - History of Present Illness History of Present Illness: PMHx of rheumatic heart disease, Afib on eliquis, Rheumatoid arthritis, Right pelvic fracture, and HTN presented s/p fall. Patient states she slipped on stair and fell down and had LOC. Pt woke up and called ambulance and was brought to ED. The pat had head trauma and a broken pelvis. Feels well now. No previous falls/ THe patient was in front of her building. and moisture from an air conditioner had formed on the front building steps. making it slippery. Due to low bp and heart rate, other CV meds were stopped. Pt has remained on eliquis, and has been in NSR. Review of Systems - Review of Systems All systems: reviewed and no additional remarkable complaints except (facial pain, p[elvic pain) Past Patient History - Infectious Disease Hx of Infectious Diseases: None - Past Medical History & Family History Past Medical History?: Yes - Past Social History Smoking Status: Never Smoked - CARDIAC Hx Atrial Fibrillation: Yes Hx Cardia Arrhythmia: Yes Hx Hypertension: Yes - PULMONARY Hx Respiratory Disorders: No - NEUROLOGICAL Hx Neurological Disorder: No - HEENT Hx HEENT Problems: Yes Hx Cataracts: Yes - ENDOCRINE/METABOLIC Hx Endocrine Disorders: No - HEMATOLOGICAL/ONCOLOGICAL Hx Blood Disorders: No - INTEGUMENTARY Hx Dermatological Problems: No - MUSCULOSKELETAL/RHEUMATOLOGICAL Hx Fractures: Yes (L3-L4) Hx Osteoporosis: Yes - GASTROINTESTINAL Hx Diverticulitis: Yes (Diverticulosis) - GENITOURINARY/GYNECOLOGICAL Hx Genitourinary Disorders: No - PSYCHIATRIC Hx Substance Use: No - SURGICAL HISTORY Hx Surgeries: Yes Hx Breast Biopsy: Yes (Left side) Hx Orthopedic Surgery: Yes (Pelvic Fx) - ANESTHESIA Hx Anesthesia: Yes Hx Anesthesia Reactions: No Meds Allergies/Adverse Reactions: Allergies Allergy/AdvReac Type Severity Reaction Status Date / Time No Known Allergies Allergy Verified 12/29/17 19:40 - Medications Medications: Current Medications Acetaminophen (Tylenol 325mg Tab) 650 mg PO Q6 PRN PRN Reason: Pain, moderate (4-7) Results - Vital Signs Recent Vital Signs: Last Vital Signs Temp 98 F 12/30/17 10:13 Pulse 77 12/30/17 09:40 Resp 18 12/30/17 09:40 BP 126/73 12/30/17 09:40 Pulse Ox 98 12/30/17 09:40 - Labs Result Diagrams: 12/30/17 05:01 12/30/17 05:01 Labs: Laboratory Results - last 24 hr 12/29/17 12/29/17 12/29/17 19:46 21:55 21:55 WBC 17.1 H D RBC 4.57 Hgb 14.1 Hct 41.8 MCV 91.5 MCH 30.9 MCHC 33.8 RDW 13.3 Plt Count 242 MPV 8.3 Neut % (Auto) 86.2 H Lymph % (Auto) 8.1 L Fisher % (Auto) 4.9 Eos % (Auto) 0.3 Baso % (Auto) 0.5 Neut # (Auto) 14.7 H Lymph # (Auto) 1.4 Fisher # (Auto) 0.8 Eos # (Auto) 0.0 Baso # (Auto) 0.1 Neutrophils % (Manual) 88 H Band Neutrophils % Lymphocytes % (Manual) 7 L Monocytes % (Manual) 3 Eosinophils % (Manual) 2 Platelet Estimate Normal PT 11.6 INR 1.1 APTT 34 Sodium Potassium Chloride Carbon Dioxide Anion Gap BUN Creatinine Est GFR ( Amer) Est GFR (Non-Af Amer) POC Glucose (mg/dL) 101 Random Glucose Calcium Phosphorus Magnesium Total Bilirubin AST ALT Alkaline Phosphatase Troponin I Total Protein Albumin Globulin Albumin/Globulin Ratio Urine Color Urine Clarity Urine pH Ur Specific [place] Urine Protein Urine Glucose (UA) Urine Ketones Urine Blood Urine Nitrate Urine Bilirubin Urine Urobilinogen Ur Leukocyte Esterase Urine WBC (Auto) Urine RBC (Auto) Urine Bacteria 12/29/17 12/30/17 12/30/17 21:55 02:33 05:01 WBC 16.2 H RBC 4.24 Hgb 12.9 Hct 38.5 MCV 90.9 MCH 30.5 MCHC 33.6 RDW 13.2 Plt Count 195 MPV 8.6 Neut % (Auto) 87.8 H Lymph % (Auto) 6.7 L Fisher % (Auto) 5.3 Eos % (Auto) 0.0 Baso % (Auto) 0.2 Neut # (Auto) 14.2 H Lymph # (Auto) 1.1 Fisher # (Auto) 0.9 H Eos # (Auto) 0.0 Baso # (Auto) 0.0 Neutrophils % (Manual) 83 H Band Neutrophils % 8 H Lymphocytes % (Manual) 5 L Monocytes % (Manual) 4 Eosinophils % (Manual) Platelet Estimate Normal PT INR APTT Sodium 139 Potassium 3.8 Chloride 101 Carbon Dioxide 25 Anion Gap 17 BUN 17 Creatinine 0.7 Est GFR ( Amer) > 60 Est GFR (Non-Af Amer) > 60 POC Glucose (mg/dL) Random Glucose 125 H Calcium 9.1 Phosphorus 3.3 Magnesium 1.7 Total Bilirubin 0.6 AST 37 H ALT 30 Alkaline Phosphatase 63 Troponin I 0.0750 Total Protein 6.9 Albumin 4.2 Globulin 2.7 Albumin/Globulin Ratio 1.6 Urine Color Yellow Urine Clarity Clear Urine pH 6.0 Ur Specific [place] 1.015 Urine Protein Negative Urine Glucose (UA) Normal Urine Ketones 1+ H Urine Blood Negative Urine Nitrate Negative Urine Bilirubin Negative Urine Urobilinogen Normal Ur Leukocyte Esterase Neg Urine WBC (Auto) < 1 Urine RBC (Auto) 3 Urine Bacteria Rare 12/30/17 05:01 WBC RBC Hgb Hct MCV MCH MCHC RDW Plt Count MPV Neut % (Auto) Lymph % (Auto) Fisher % (Auto) Eos % (Auto) Baso % (Auto) Neut # (Auto) Lymph # (Auto) Fisher # (Auto) Eos # (Auto) Baso # (Auto) Neutrophils % (Manual) Band Neutrophils % Lymphocytes % (Manual) Monocytes % (Manual) Eosinophils % (Manual) Platelet Estimate PT INR APTT Sodium 139 Potassium 4.1 Chloride 103 Carbon Dioxide 24 Anion Gap 16 BUN 14 Creatinine 0.6 L Est GFR ( Amer) > 60 Est GFR (Non-Af Amer) > 60 POC Glucose (mg/dL) Random Glucose 123 H Calcium 8.4 L Phosphorus 3.3 Magnesium 1.6 Total Bilirubin 0.9 AST 37 H ALT 31 Alkaline Phosphatase 45 Troponin I Total Protein 6.5 Albumin 3.7 Globulin 2.8 Albumin/Globulin Ratio 1.4 Urine Color Urine Clarity Urine pH Ur Specific [place] Urine Protein Urine Glucose (UA) Urine Ketones Urine Blood Urine Nitrate Urine Bilirubin Urine Urobilinogen Ur Leukocyte Esterase Urine WBC (Auto) Urine RBC (Auto) Urine Bacteria
--- NOTE | 2017-12-30 13:26 | RAD ---
Date of service: 12/29/2017 PROCEDURE: Bilateral Knee Radiographs. HISTORY: knee swelling, pain COMPARISON: None. FINDINGS: BONES: Right Knee: Normal. No fracture. Left Knee: Normal. No fracture. JOINTS: Right Knee: Normal. No osteoarthritis. Left knee: Medial joint space narrowing consistent with osteoarthritis. Lateral and patellofemoral compartments are preserved. SOFT TISSUES: Right Knee: Extensive prepatellar soft tissue swelling, nonspecific. Left Knee: Normal. JOINT EFFUSION: Right Knee: None. Left Knee: None. OTHER FINDINGS: None. IMPRESSION: Extensive right prepatellar soft tissue swelling, nonspecific. Possible prepatellar bursitis. Left medial osteoarthritis.
--- NOTE | 2017-12-30 13:37 | CT ---
Date of service: 12/30/2017 PROCEDURE: CT right knee HISTORY: s/p fall COMPARISON: Not available TECHNIQUE: 2.5 mm contiguous axial sections were acquired through the right knee. Sagittal and coronal images were reformatted from the axial scan. FINDINGS: There is no evidence of fracture. There is narrowing of the medial and patellofemoral joint compartments. There is subchondral sclerosis of the medial compartment. The findings are consistent with medial and patellofemoral osteoarthritis. Lateral compartment is preserved. There are no articular erosions. Globular high attenuation soft tissue density is seen in the prepatellar space likely reflecting focal hemorrhage. There may be blood within the prepatellar bursa. There is nonspecific infiltration of the subcutaneous soft tissues in the prepatellar aspect of the knee. IMPRESSION: No acute fracture. Medial and patellofemoral osteoarthritis. Prepatellar hematoma, possibly within the prepatellar bursa. No joint effusion.
--- NOTE | 2017-12-30 14:26 | RAD ---
Left hand three views History: Laceration. Comparison: None available. Findings: Soft tissue swelling with laceration noted at the level of the 3rd phalanx. Punctate radiopaque density noted at the level of the laceration at the base of the 3rd proximal phalanx. Punctate foreign body at this level cannot entirely be excluded. Clinical correlation. Prominent degenerative changes with narrowing at the 2nd through 5th PIP and DIP joint spaces. Focal sclerosis at the level of the 2nd distal phalanx which may represent bone island and/or chondroid lesion. Severe narrowing of the 1st carpometacarpal joint space. Degenerative changes at the radiocarpal joint space. Impression: Soft tissue swelling with laceration noted at the level of the 3rd phalanx. Punctate radiopaque density noted at the level of the laceration at the base of the 3rd proximal phalanx. Punctate foreign body at this level cannot entirely be excluded. Clinical correlation. Prominent degenerative changes with narrowing at the 2nd through 5th PIP and DIP joint spaces. Focal sclerosis at the level of the 2nd distal phalanx which may represent bone island and/or chondroid lesion. Severe narrowing of the 1st carpometacarpal joint space. Degenerative changes at the radiocarpal joint space.
[2017-12-30] MEDS: Bacitracin Ointment 30 GM TUBE TOP SCH (17:22)
--- NOTE | 2017-12-30 23:42 | CARD ---
APPROVED REPORT Date of service: 12/29/2017 EKG Measurement Heart [id number] <Conclusion> Sinus rhythm with APC's Otherwise normal ECG
--- NOTE | 2017-12-31 08:29 | CP.PCM.PN ---
Subjective - Date & Time of Evaluation Date of Evaluation: 12/31/17 Time of Evaluation: 06:30 - Subjective Subjective: HAND SURGERY PROGRESS NOTE FOR DR. HERNANDEZ Patient seen and examined at bedside. She denies any complaints from her hand. States that she does not have pain, denies numbness or tingling. Objective - Vital Signs/Intake and Output Vital Signs (last 24 hours): Temp Pulse Resp BP Pulse Ox 98.4 F 59 L 18 138/78 96 12/31/17 07:58 12/31/17 07:58 12/31/17 07:58 12/31/17 07:58 12/31/17 07:58 Intake and Output: 12/31/17 12/31/17 06:59 18:59 Intake Total 300 Balance 300 - Medications Medications: Current Medications Acetaminophen (Tylenol 325mg Tab) 650 mg PO Q6 PRN PRN Reason: Pain, moderate (4-7) Last Admin: 12/30/17 17:22 Dose: 650 mg Bacitracin (Bacitracin) 1 gm TOP DAILY [facility] Last Admin: 12/30/17 17:22 Dose: 1 applic - Labs Labs: 12/30/17 05:01 12/30/17 05:01 PT 11.6 SECONDS (9.7-12.2) 12/29/17 21:55 INR 1.1 12/29/17 21:55 APTT 34 SECONDS (21-34) 12/29/17 21:55 - Constitutional Appears: Non-toxic, No Acute Distress - Head Exam Head Exam: ATRAUMATIC, NORMAL INSPECTION - Eye Exam Eye Exam: EOMI, Normal appearance - Respiratory Exam Respiratory Exam: NORMAL BREATHING PATTERN. absent: Respiratory Distress - Cardiovascular Exam Cardiovascular Exam: +S1, +S2 - Extremities Exam Additional comments: Full ROM w/ flexion and extension of left middle finger. Sutures in place, iodaform covering, wrapped with kerlix, splint in place - Neurological Exam Neurological Exam: Alert, Awake, Oriented x3 - Psychiatric Exam Psychiatric exam: Normal Affect, Normal Mood - Skin Skin Exam: Normal Color, Warm Assessment and Plan - Assessment and Plan (Free Text) Assessment: 87F with traumatic laceration of the subcutaneous tissue of the left third finger with no neuromotor defecits - Covered wound with xeroform gauze, 4x4 - Splint removed - PRN pain medication - May follow up with Dr. Hernandez in her office - Discussed plan with Dr. Jude Hill PGY-4
[2017-12-31] MEDS: Bacitracin Ointment 30 GM TUBE TOP SCH (10:20)
--- NOTE | 2017-12-31 10:25 | CT ---
Date of service: 12/31/2017 PROCEDURE: CT HEAD WITHOUT CONTRAST. HISTORY: Status post fall. Rule out hemorrhage. COMPARISON: None available. TECHNIQUE: Axial computed tomography images were obtained through the head/brain without intravenous contrast. Radiation dose: Total exam DLP = mGy-cm. This CT exam was performed using one or more of the following dose reduction techniques: Automated exposure control, adjustment of the mA and/or kV according to patient size, and/or use of iterative reconstruction technique. FINDINGS: HEMORRHAGE: No acute parenchymal, subarachnoid or extra-axial hemorrhage. BRAIN: Mild chronic periventricular white matter ischemic changes seen extending peripherally into the deep white matter both cerebral hemispheres. Additionally, there are patchy of hearing ischemic changes seen scattered about the subcortical white matter bilaterally as well. Few scattered chronic bilateral basal nuclei lacunar type infarcts within. No obvious parenchymal nor extra-axial mass or collection seen on this noncontrast study. Moderate generalized volume loss. Mild vascular calcifications both carotid siphons. VENTRICLES: No obstructive hydrocephalus. CALVARIUM: Calvarium intact. . Mild supraorbital/inferior frontal scalp swelling also diminished. PARANASAL SINUSES: Apparent nondisplaced fractures of the posterolateral wall right maxillary antrum with interval subtotal opacification right maxillary antrum. . Small fluid level seen in the sphenoid sinus. There is also minor mucosal thickening sphenoid and ethmoid air complex extending superiorly into the inferior aspect of frontal sinus. Minor mucosal thickening left maxillary antrum. MASTOID AIR CELLS: Unremarkable as visualized. No inflammatory changes. OTHER FINDINGS: Changes of bilateral cataract surgery. Re- demonstrated are small calcifications along the insertion sites of the medial recti musculature bilaterally. There is tiny approximately 3 mm round- elliptical shaped radiopaque density in the right lateral periorbital soft tissues that may represent a small calcification or foreign body with surrounding mild periorbital, supraorbital and right inferior frontal soft tissue swelling that has improved from prior study. IMPRESSION: No acute intracranial hemorrhage. Mild chronic white matter and basal nuclei ischemic changes. Moderate generalized volume loss. Persistent but improved right periorbital soft tissue swelling. Small rounded-elliptical shaped radiopaque density within the right lateral periorbital soft tissues that may represent calcification or small radiopaque foreign body. Nondisplaced fracture posterolateral wall right maxillary antrum with interval subtotal opacification of same.
[2017-12-31 10:57] LABS: BASO % 0.3 % (0.0-2.0); EOS % 0.1 % (0.0-4.0); HEMOGLOBIN 12.8 g/dL (11.0-16.0); LYMPH % 13.5 % (20.0-40.0); MEAN CELL VOLUME 91.5 fL (81.0-99.0); MEAN CORPUSCULAR HGB CONC 33.9 g/dL (33.0-37.0); MEAN PLATELET VOLUME 9.1 fL (7.2-11.7); MONO # 0.9 K/uL (0.0-0.8); MONO % 5.8 % (0.0-10.0); NEUT # 11.9 K/uL (1.8-7.0); NEUT % 80.3 % (50.0-75.0); RBC 4.12 Mil/uL (3.80-5.20); RED CELL DISTRIBUTION WIDTH 13.3 % (11.5-14.5); WHITE BLOOD COUNT 14.9 K/uL (4.8-10.8)
[2017-12-31 11:06] LABS: ALB/GLOB RATIO 1.6 (1.0-2.1); ALBUMIN 4.1 g/dL (3.5-5.0); ALT/SGPT 24 U/L (9-52); AST/SGOT 26 U/L (14-36); BLOOD UREA NITROGEN 12 mg/dL (7-17); CALCIUM 8.8 mg/dl (8.6-10.4); GFR NON-AFRICAN AMERICAN > 60
--- NOTE | 2017-12-31 11:08 | RAD ---
Date of service: 12/31/2017 PROCEDURE: HISTORY: FALL COMPARISON: 02/01/2014 TECHNIQUE: AP pelvis and frog's leg view. FINDINGS: No acute fracture or dislocation noted. The deformity of the superior and inferior pubic rami bordering the symphysis pubis is compatible with healed fracture deformities here. Pubic symphyseal subchondral sclerotic and cystic arthropathic changes -similar. Left hemipelvic phleboliths. Bilateral hip mild osteoarthrosis. IMPRESSION: No acute fracture or dislocation. Old healed fracture deformities right superior inferior pubic rami.
--- NOTE | 2017-12-31 13:40 | CP.PCM.PN ---
Subjective - Date & Time of Evaluation Date of Evaluation: 12/31/17 Time of Evaluation: 11:00 - Subjective Subjective: PGY 1 Progress Note for Neurologist Dr. Katz. Patient seen and examined at bedside. Patient had no acute events overnight. Patient states she is feeling fine and has no complaints. Patient denies headaches, vision changes, loss of strength, chest pain, & SOB. Objective - Vital Signs/Intake and Output Vital Signs (last 24 hours): Temp Pulse Resp BP Pulse Ox 98.4 F 59 L 18 138/78 96 12/31/17 07:58 12/31/17 07:58 12/31/17 07:58 12/31/17 07:58 12/31/17 07:58 Intake and Output: 12/31/17 12/31/17 06:59 18:59 Intake Total 300 Balance 300 - Medications Medications: Current Medications Acetaminophen (Tylenol 325mg Tab) 650 mg PO Q6 PRN PRN Reason: Pain, moderate (4-7) Last Admin: 12/30/17 17:22 Dose: 650 mg Bacitracin (Bacitracin) 1 gm TOP DAILY [facility] Last Admin: 12/31/17 10:20 Dose: 1 applic - Labs Labs: 12/31/17 10:44 12/31/17 10:44 PT 11.6 SECONDS (9.7-12.2) 12/29/17 21:55 INR 1.1 12/29/17 21:55 APTT 34 SECONDS (21-34) 12/29/17 21:55 - Constitutional Appears: Non-toxic, No Acute Distress - Head Exam Head Exam: NORMOCEPHALIC Additional comments: right eye ecchymosis right side of jaw ecchymosis - Eye Exam Eye Exam: EOMI, Normal appearance, PERRL Pupil Exam: NORMAL ACCOMODATION - ENT Exam ENT Exam: Mucous Membranes Moist - Extremities Exam Additional comments: L hand, 3rd digit in splint w/ wrapping 2/2 injury - Neurological Exam Neurological Exam: Alert, Awake, Oriented x3 Neuro motor strength exam: Left Upper Extremity: 5, Right Upper Extremity: 5, Left Lower Extremity: 5, Right Lower Extremity: 5 - Psychiatric Exam Psychiatric exam: Normal Affect, Normal Mood Assessment and Plan (1) Fall Assessment & Plan: Assessment & Plan discussed with Dr. Katz 87 year F w/ PMHx of rheumatic heart disease, Afib on eliquis, Rheumatoid arthritis, Right pelvic fracture, and HTN presented s/p fall 1) Fall - F/u CT shows no acute hemorrhage - Hold Eliquis for now - There is no further neurological recommendations. Please re-consult if necessary. - Thank you for consulting neurology Status: Acute
--- NOTE | 2017-12-31 15:27 | CP.PCM.PN ---
<Elieser Mackay - Last Filed: 12/31/17 16:33> Subjective - Date & Time of Evaluation Date of Evaluation: 12/31/17 Time of Evaluation: 15:27 - Subjective Subjective: Medicine Note for Hospitalist Service Pt seen and examined at bedside. No acute complaints overnight. Denies cp, SOB, f/c, n/v. Pt went into RVR- given 15mg Cardizem IVP/ 2min. HR went from 154-------> 80s- 110s. Dr. Felipe made aware Objective - Vital Signs/Intake and Output Vital Signs (last 24 hours): Temp Pulse Resp BP Pulse Ox 98.4 F 59 L 18 138/78 96 12/31/17 07:58 12/31/17 07:58 12/31/17 07:58 12/31/17 07:58 12/31/17 07:58 Intake and Output: 12/31/17 12/31/17 06:59 18:59 Intake Total 300 Balance 300 - Medications Medications: Current Medications Acetaminophen (Tylenol 325mg Tab) 650 mg PO Q6 PRN PRN Reason: Pain, moderate (4-7) Last Admin: 12/30/17 17:22 Dose: 650 mg Apixaban (Eliquis) 2.5 mg PO BID [facility] Bacitracin (Bacitracin) 1 gm TOP DAILY [facility] Last Admin: 12/31/17 10:20 Dose: 1 applic Metoprolol Tartrate (Lopressor) 12.5 mg PO BID [facility] - Labs Labs: 12/31/17 10:44 12/31/17 10:44 PT 11.6 SECONDS (9.7-12.2) 12/29/17 21:55 INR 1.1 12/29/17 21:55 APTT 34 SECONDS (21-34) 12/29/17 21:55 - Additional Findings Additional findings: - Constitutional Appears: Non-toxic, No Acute Distress - Head Exam Additional comments: right husam orbital erythema and echymosis R frontal/ maxillary bruising Mandibular bruising no protruding bony prominences. tender to palpation - Eye Exam Eye Exam: EOMI, Normal appearance, Periorbital swelling, PERRL. absent: Scleral icterus Pupil Exam: NORMAL ACCOMODATION - ENT Exam ENT Exam: Mucous Membranes Moist, Normal Exam - Neck Exam Neck Exam: Normal Inspection - Respiratory Exam Respiratory Exam: Clear to Ausculation Bilateral, NORMAL BREATHING PATTERN. absent: Rhonchi, Wheezes, Respiratory Distress - Cardiovascular Exam Cardiovascular Exam: RRR, +S1, +S2. absent: Murmur - Extremities Exam Additional comments: R knee markedly greater in size than left. tender to palpation and ROM L third digit laceration. no bleeding, healing. - Back Exam Back Exam: NORMAL INSPECTION - Neurological Exam Neurological Exam: Alert, Oriented x3 - Psychiatric Exam Psychiatric exam: Normal Affect, Normal Mood - Skin Skin Exam: Dry, Warm. absent: Diaphoretic Assessment and Plan - Assessment and Plan (Free Text) Assessment: S/P Fall -head CT: no acute findings -Tylenol 650mg prn for pain Facial Contusion -maxillofacial CT: acute premandibular hematoma, soft tissue swelling Right Knee Contusion -knee xray -knee CT Left Hand Laceration -hand xray -Surgery, Dr. Roque consulted, help appreciated Afib cardizem 15mg, IVP for RVR metoprolol 12.5mg PO daily restarted home med eliquis 2.5mg po bid Cardiology consulted, Dr. Felipe, help appreciated Prophylaxis No chemical anticoagulation no scds due to LE injury Heart healthy diet <Ranulfo Hermosillo - Last Filed: 12/31/17 19:59> Objective - Vital Signs/Intake and Output Vital Signs (last 24 hours): Temp Pulse Resp BP Pulse Ox 100.1 F H 109 H 20 100/61 97 12/31/17 15:03 12/31/17 15:03 12/31/17 15:03 12/31/17 15:03 12/31/17 15:03 - Medications Medications: Current Medications Acetaminophen (Tylenol 325mg Tab) 650 mg PO Q6 PRN PRN Reason: Pain, moderate (4-7) Last Admin: 12/30/17 17:22 Dose: 650 mg Apixaban (Eliquis) 2.5 mg PO BID [facility] Last Admin: 12/31/17 17:14 Dose: 2.5 mg Bacitracin (Bacitracin) 1 gm TOP DAILY [facility] Last Admin: 12/31/17 10:20 Dose: 1 applic Metoprolol Tartrate (Lopressor) 12.5 mg PO BID [facility] Last Admin: 12/31/17 17:14 Dose: 12.5 mg - Labs Labs: 12/31/17 10:44 12/31/17 10:44 PT 11.6 SECONDS (9.7-12.2) 12/29/17 21:55 INR 1.1 12/29/17 21:55 APTT 34 SECONDS (21-34) 12/29/17 21:55 Attending/Attestation - Attestation I have personally seen and examined this patient.: Yes I have fully participated in the care of the patient.: Yes I have reviewed all pertinent clinical information, including history, physical exam and plan: Yes Notes (Text): 12/31/17 19:46 Patient was seen and examined at 9:30 AM 12/31/17 Care of this patient was gone over in detail with the resident. Please note that under Prophylaxis that anticoagulation was started due to the Afib with RVR and was done so in coordination with Mortgage Or Loan Underwriter Dr. Felipe. Also please note that the resident working with the Hand Surgeon was made aware of the foreign body that was noted at the base of the left third phalange on left hand x ray. CT Right Knee did NOT show fracture, but did show prepatellar hematoma and medial and patellofemoral osteoarthritis. Patient instructed on icing every 3 to 4 hours with ice packs that were left at bedside and she was instructed to press call button for help activating the ice packs. F/U Hip/Pelvis X Ray F/U Echocardiogram report Will speak with PT 01/01/18 concerning their recommendations for physical therapy : [facility] vs Home PT vs Outpatient PT. Ranulfo Hermosillo D.O.
[2017-12-31 17:04] VITALS: RESP 20
--- NOTE | 2017-12-31 18:53 | CARD ---
APPROVED REPORT Date of service: 12/31/2017 EKG Measurement Heart [id number] <Conclusion> Atrial fibrillation with rapid ventricular response Nonspecific ST abnormality Abnormal ECG
--- NOTE | 2018-01-01 01:48 | CARD ---
APPROVED REPORT Date of service: 12/31/2017 EXAM: Two-dimensional and M-mode echocardiogram with Doppler and color Doppler. 2D DIMENSIONS IVSd1.0 (0.7-1.1cm)Aortic Root (2D)3.0 (2.0-3.7cm) LVDd4.4 (3.9-5.9cm)PWd0.9 (0.7-1.1cm) LVDs2.1 (2.5-4.0cm)FS (%) 53.0 % LVEF (%)70.0 (>50%) M-Mode DIMENSIONS RVDd1.75 (2.1-3.2cm)Left Atrium (MM)3.80 (2.5-4.0cm) IVSd0.87 (0.7-1.1cm)Aortic Root2.92 (2.2-3.7cm) LVDd4.59 (4.0-5.6cm)Aortic Cusp Exc.2.06 (1.5-2.0cm) PWd0.93 (0.7-1.1cm)FS (%) 57 % LVDs1.97 (2.0-3.8cm)LVEF (%)71 (>50%) Mitral Valve MV E Sudcquej36.9cm/sMV A Wgnvcgvu87.8cm/sE/A ratio0.8 TDI E/Lateral E'0.0E/Medial E'0.0 Tricuspid Valve TR Peak Kpjwsaxs875ee/sTR Peak Gr.[id number] LEFT VENTRICLE The left ventricle is normal size. There is normal left ventricular wall thickness. Left ventricle systolic function is normal. The Ejection Fraction is 65-70%. The left ventricular function is normal. The Ejection Fraction is 65-70%. There is normal LV segmental wall motion. Tissue Doppler imaging reveals abnormal left ventricular diastolic dysfunction. RIGHT VENTRICLE The right ventricle is normal size. There is normal right ventricular wall thickness. The right ventricular systolic function is normal. ATRIA The left atrium size is normal. The right atrium size is normal. The interatrial septum is intact with no evidence for an atrial septal defect. AORTIC VALVE The aortic valve is normal in structure. No aortic regurgitation is present. There is no aortic valvular stenosis. MITRAL VALVE The mitral valve is normal in structure. There is no evidence of mitral valve prolapse. There is no mitral valve stenosis. Mitral regurgitation is mild. TRICUSPID VALVE The tricuspid valve is normal in structure. There is mild tricuspid regurgitation. Right ventricular systolic pressure is estimated at 30-40 mmHg. There is mild pulmonary hypertension. PULMONIC VALVE The pulmonic valve is not well visualized. There is no pulmonic valvular regurgitation. GREAT VESSELS The aortic root is normal in size. PERICARDIAL EFFUSION There is mild posterior pericardial effusion. <Conclusion> The left ventricular function is normal. The Ejection Fraction is 65-70%. Diastolic dysfunction. No aortic regurgitation is present. Mitral regurgitation is mild. There is mild tricuspid regurgitation. There is mild pulmonary hypertension. There is no pulmonic valvular regurgitation.
[2018-01-01] MEDS ORDERED: Meropenem 1 GM in Sodium Chloride 0.9% 100 ML IVPB SCH (08:00)
[2018-01-01 08:23] LABS: BASO # 0.1 K/uL (0.0-0.2); BASO % 0.5 % (0.0-2.0); EOS % 0.5 % (0.0-4.0); HEMOGLOBIN 12.3 g/dL (11.0-16.0); LYMPH # 1.6 K/uL (1.0-4.3); LYMPH % 15.5 % (20.0-40.0); MEAN CELL VOLUME 91.7 fL (81.0-99.0); MEAN CORPUSCULAR HEMOGLOBIN 31.5 pg (27.0-31.0); MEAN CORPUSCULAR HGB CONC 34.3 g/dL (33.0-37.0); MEAN PLATELET VOLUME 9.2 fL (7.2-11.7); MONO # 0.9 K/uL (0.0-0.8); MONO % 8.2 % (0.0-10.0); NEUT % 75.3 % (50.0-75.0); RBC 3.91 Mil/uL (3.80-5.20); RED CELL DISTRIBUTION WIDTH 13.3 % (11.5-14.5); WHITE BLOOD COUNT 10.6 K/uL (4.8-10.8)
[2018-01-01] MEDS: Bacitracin Ointment 30 GM TUBE TOP SCH (09:43)
--- NOTE | 2018-01-01 11:30 | CP.PCM.DIS ---
<Jorge LuisjoselinElieser - Last Filed: 01/01/18 15:53> Provider - Provider Date of Admission: 12/29/17 23:11 Attending physician: Ranulfo Hermosillo MD Time Spent in preparation of Discharge (in minutes): 45 Diagnosis - Discharge Diagnosis (1) Laceration Status: Acute (2) Syncope Status: Resolved (3) Arrhythmia Status: Chronic (4) Fall Status: Acute (5) Pelvic fracture Status: Chronic Hospital Course - Lab Results Lab Results: Most Recent Lab Values WBC 10.6 K/uL (4.8-10.8) 01/01/18 08:14 RBC 3.91 Mil/uL (3.80-5.20) 01/01/18 08:14 Hgb 12.3 g/dL (11.0-16.0) 01/01/18 08:14 Hct 35.9 % (34.0-47.0) 01/01/18 08:14 MCV 91.7 fL (81.0-99.0) 01/01/18 08:14 MCH 31.5 pg (27.0-31.0) H 01/01/18 08:14 MCHC 34.3 g/dL (33.0-37.0) 01/01/18 08:14 RDW 13.3 % (11.5-14.5) 01/01/18 08:14 Plt Count 237 K/uL (130-400) 01/01/18 08:14 MPV 9.2 fL (7.2-11.7) 01/01/18 08:14 Neut % (Auto) 75.3 % (50.0-75.0) H 01/01/18 08:14 Lymph % (Auto) 15.5 % (20.0-40.0) L 01/01/18 08:14 [place] % (Auto) 8.2 % (0.0-10.0) 01/01/18 08:14 Eos % (Auto) 0.5 % (0.0-4.0) 01/01/18 08:14 Baso % (Auto) 0.5 % (0.0-2.0) 01/01/18 08:14 Neut # (Auto) 8.0 K/uL (1.8-7.0) H 01/01/18 08:14 Lymph # (Auto) 1.6 K/uL (1.0-4.3) 01/01/18 08:14 [place] # (Auto) 0.9 K/uL (0.0-0.8) H 01/01/18 08:14 Eos # (Auto) 0.0 K/uL (0.0-0.7) 01/01/18 08:14 Baso # (Auto) 0.1 K/uL (0.0-0.2) 01/01/18 08:14 Neutrophils % (Manual) 83 % (50-75) H 12/30/17 05:01 Band Neutrophils % 8 % (0-2) H 12/30/17 05:01 Lymphocytes % (Manual) 5 % (20-40) L 12/30/17 05:01 Monocytes % (Manual) 4 % (0-10) 12/30/17 05:01 Eosinophils % (Manual) 2 % (0-4) 12/29/17 21:55 Platelet Estimate Normal (NORMAL) 12/30/17 05:01 PT 11.6 SECONDS (9.7-12.2) 12/29/17 21:55 INR 1.1 12/29/17 21:55 APTT 34 SECONDS (21-34) 12/29/17 21:55 Sodium 139 mmol/L (132-148) 12/31/17 10:44 Potassium 3.8 mmol/L (3.6-5.2) 12/31/17 10:44 Chloride 103 mmol/L (98-107) 12/31/17 10:44 Carbon Dioxide 24 mmol/L (22-30) 12/31/17 10:44 Anion Gap 16 (10-20) 12/31/17 10:44 BUN 12 mg/dL (7-17) 12/31/17 10:44 Creatinine 0.8 mg/dL (0.7-1.2) 12/31/17 10:44 Est GFR ( Amer) > 60 12/31/17 10:44 Est GFR (Non-Af Amer) > 60 12/31/17 10:44 POC Glucose (mg/dL) 101 mg/dL (65-110) 12/29/17 19:46 Random Glucose 192 mg/dL (65-105) H 12/31/17 10:44 Calcium 8.8 mg/dl (8.6-10.4) 12/31/17 10:44 Phosphorus 3.3 mg/dL (2.5-4.5) 12/30/17 05:01 Magnesium 1.6 mg/dL (1.6-2.3) 12/30/17 05:01 Total Bilirubin 0.5 mg/dL (0.2-1.3) 12/31/17 10:44 AST 26 U/L (14-36) 12/31/17 10:44 ALT 24 U/L (9-52) 12/31/17 10:44 Alkaline Phosphatase 58 U/L (38-126) 12/31/17 10:44 Troponin I 0.0750 ng/mL (0.00-0.120) 12/29/17 21:55 Total Protein 6.8 g/dL (6.3-8.3) 12/31/17 10:44 Albumin 4.1 g/dL (3.5-5.0) 12/31/17 10:44 Globulin 2.6 gm/dL (2.2-3.9) 12/31/17 10:44 Albumin/Globulin Ratio 1.6 (1.0-2.1) 12/31/17 10:44 Urine Color Yellow (YELLOW) 12/30/17 02:33 Urine Clarity Clear (Clear) 12/30/17 02:33 Urine pH 6.0 (5.0-8.0) 12/30/17 02:33 Ur Specific [place] 1.015 (1.003-1.030) 12/30/17 02:33 Urine Protein Negative mg/dL (NEGATIVE) 12/30/17 02:33 Urine Glucose (UA) Normal mg/dL (Normal) 12/30/17 02:33 Urine Ketones 1+ mg/dL (NEGATIVE) H 12/30/17 02:33 Urine Blood Negative (NEGATIVE) 12/30/17 02:33 Urine Nitrate Negative (NEGATIVE) 12/30/17 02:33 Urine Bilirubin Negative (NEGATIVE) 12/30/17 02:33 Urine Urobilinogen Normal mg/dL (0.2-1.0) 12/30/17 02:33 Ur Leukocyte Esterase Neg [place]/uL (Negative) 12/30/17 02:33 Urine WBC (Auto) < 1 /hpf (0-5) 12/30/17 02:33 Urine RBC (Auto) 3 /hpf (0-3) 12/30/17 02:33 Urine Bacteria Rare (<OCC) 12/30/17 02:33 - Hospital Course Hospital Course: CC: fall HPI: 87 F with a PMH of rheumatic heart disease, Afib, Rheumatoid arthritis, Right pelvic fracture, and HTN presents to the ED for a fall. Patient states that she was taking out the recycling around 6:30pm when she tripped and fell down the stairs. Patient states she had lost consciousness during the fall and only regained it on the ambulance ride and again in the ED. Patient states that from what she can recall, she fell from the 4th or 5th step of her porch. Patient states she was told that her neighbor had seen her fall and called the ambulance. In the ED, patient complains of right knee pain. On examination patient has bruising of the right eye, right jaw, laceration of her middle third digit of the left hand, and a hematoma on her right knee. Patient states she has a hard time opening her right eye due to the swelling. Patient denies any sensation loss or weakness of the lacerated left middle finger. Patient does state she has a slight headache from the fall, but does not have any dizziness or blurry vision. On examination, patient denies fever, chills, nausea , vomiting, diarrhea, abdominal pain, changes in urinary or bowel habits, SOB, chest pain, and chest palpitations. Cardio: Dr. Felipe Allergies: NKDA, sensitive to strong fragrances PMH: Rheumatic heart disease, Afib, rheumatoid arthritis, Right pelvic fracture , and HTN PSHx: Cyst removal from the Left breast x2 Social: patient denies smoking and drug use; patient drink alcohol- 1 glass of wine on the weekend Family Hx: none Meds: Elliquis 2.5mg BID, losartan (which she stopped taking in September), Vitamins ( Centrum Silver), Calcium and Vitamin D supplements Hospital Course: Pt was admitted s/p fall. Pt suffered no acute fractures. Pt sustained a right knee hematoma, mandibular and maxillary bruising and a L 3rd digit laceration. Hand surgery was consulted to loosely tack lateral skin edges. Healing well. Pt was treated with bacitracin for wound care. Pt experienced one episode of RVR on 12/31 at noon, HR elevated to 154, EKG showed atrial fib. Pt was given 15mg of cardizem / 2min, pt hr responded to 80s-100s. Pt was asymptomatic overnight. Pt stable for discharge home with outpatient PT care. Imaging: Knee Xray: swelling Knee CT: hematoma Head CT: neg for bleed or acute ischemia Pt is to follow up with Dr Discharge Exam - Head Exam Head Exam: ATRAUMATIC, NORMAL INSPECTION - Additional Findings Additional findings: - Constitutional Appears: Non-toxic, No Acute Distress - Head Exam Additional comments: right husam orbital erythema and echymosis R frontal/ maxillary bruising Mandibular bruising no protruding bony prominences. tender to palpation - Eye Exam Eye Exam: EOMI, Normal appearance, Periorbital swelling, PERRL. absent: Scleral icterus Pupil Exam: NORMAL ACCOMODATION - ENT Exam ENT Exam: Mucous Membranes Moist, Normal Exam - Neck Exam Neck Exam: Normal Inspection - Respiratory Exam Respiratory Exam: Clear to Ausculation Bilateral, NORMAL BREATHING PATTERN. absent: Rhonchi, Wheezes, Respiratory Distress - Cardiovascular Exam Cardiovascular Exam: RRR, +S1, +S2. absent: Murmur - Extremities Exam Additional comments: R knee markedly greater in size than left. tender to palpation and ROM L third digit laceration. no bleeding, healing. - Back Exam Back Exam: NORMAL INSPECTION - Neurological Exam Neurological Exam: Alert, Oriented x3 - Psychiatric Exam Psychiatric exam: Normal Affect, Normal Mood - Skin Skin Exam: Dry, Warm. absent: Diaphoretic Discharge Plan - Discharge Medications Prescriptions: Apixaban [Eliquis] 5 mg PO BID #60 tab Metoprolol Tartrate [Lopressor] 12.5 mg PO BID #60 tab - Follow Up Plan Condition: FAIR Disposition: HOME/ ROUTINE Instructions: Atrial Fibrillation (DC), How to Use a Cane, Near Fainting (DC) Additional Instructions: Schedule follow up with your Primary Care Physician Dr. Valenzuela by calling . This appointment should take place at the beginning of next week. Through Dr. Valenzuela's office arrange for outpatient physical therapy. A prescription for this physical therapy has been provided to you at the time of your discharge. Schedule follow up with Machine Trimmer Dr. Felipe by calling [phone]. This appointment should take place any time next week. Schedule follow up with Hand Surgeon Dr. Roque by calling [phone]. This appointment should take place no later than 01/07/18. Please have the following prescriptions filled at your pharmacy and take as directed. These should be the only medications that you should take: Eliquis 5 mg, 1 tablet by mouth 2x/day (8 AM and 8 PM), Dispense #60, NO refills Metoprolol 25 mg, 1 tablet by mouth 2x/day (8 AM and 8 PM). Dispense #60, NO refills You were provided with some Bacitracin. Please apply to the base of your third finger on the left hand 1x/day and then cover with the gauze as instructed and demonstrated to you at the time of your discharge. Please keep this area dry. Dr. Roque will remove the sutures at the time of your appointment with her and provide you with additional instructions. Please ice the right knee at least 4 times a day for at least 1 hour. While laying or sitting please keep the right leg elevated. Please take care and be well. Ranulfo Hermosillo D.O. Referrals: Arpit Felipe MD [Staff Provider] - Ruth Ann Katz MD [Staff Provider] - <Ranulfo Hermosillo - Last Filed: 01/04/18 22:02> Provider - Provider Date of Admission: 12/29/17 23:11 Attending physician: Ranulfo Hermosillo MD Time Spent in preparation of Discharge (in minutes): 40 Hospital Course - Lab Results Lab Results: Most Recent Lab Values WBC 12.6 K/uL (4.8-10.8) H 01/01/18 17:33 RBC 3.84 Mil/uL (3.80-5.20) 01/01/18 17:33 Hgb 11.8 g/dL (11.0-16.0) 01/01/18 17:33 Hct 34.9 % (34.0-47.0) 01/01/18 17:33 MCV 90.8 fL (81.0-99.0) 01/01/18 17:33 MCH 30.8 pg (27.0-31.0) 01/01/18 17:33 MCHC 33.9 g/dL (33.0-37.0) 01/01/18 17:33 RDW 13.6 % (11.5-14.5) 01/01/18 17:33 Plt Count 251 K/uL (130-400) 01/01/18 17:33 MPV 9.0 fL (7.2-11.7) 01/01/18 17:33 Neut % (Auto) 74.4 % (50.0-75.0) 01/01/18 17:33 Lymph % (Auto) 15.7 % (20.0-40.0) L 01/01/18 17:33 [place] % (Auto) 9.2 % (0.0-10.0) 01/01/18 17:33 Eos % (Auto) 0.4 % (0.0-4.0) 01/01/18 17:33 Baso % (Auto) 0.3 % (0.0-2.0) 01/01/18 17:33 Neut # (Auto) 9.4 K/uL (1.8-7.0) H 01/01/18 17:33 Lymph # (Auto) 2.0 K/uL (1.0-4.3) 01/01/18 17:33 [place] # (Auto) 1.2 K/uL (0.0-0.8) H 01/01/18 17:33 Eos # (Auto) 0.1 K/uL (0.0-0.7) 01/01/18 17:33 Baso # (Auto) 0.0 K/uL (0.0-0.2) 01/01/18 17:33 Neutrophils % (Manual) 83 % (50-75) H 12/30/17 05:01 Band Neutrophils % 8 % (0-2) H 12/30/17 05:01 Lymphocytes % (Manual) 5 % (20-40) L 12/30/17 05:01 Monocytes % (Manual) 4 % (0-10) 12/30/17 05:01 Eosinophils % (Manual) 2 % (0-4) 12/29/17 21:55 Platelet Estimate Normal (NORMAL) 12/30/17 05:01 PT 11.6 SECONDS (9.7-12.2) 12/29/17 21:55 INR 1.1 12/29/17 21:55 APTT 34 SECONDS (21-34) 12/29/17 21:55 Sodium 139 mmol/L (132-148) 12/31/17 10:44 Potassium 3.8 mmol/L (3.6-5.2) 12/31/17 10:44 Chloride 103 mmol/L (98-107) 12/31/17 10:44 Carbon Dioxide 24 mmol/L (22-30) 12/31/17 10:44 Anion Gap 16 (10-20) 12/31/17 10:44 BUN 12 mg/dL (7-17) 12/31/17 10:44 Creatinine 0.8 mg/dL (0.7-1.2) 12/31/17 10:44 Est GFR ( Amer) > 60 12/31/17 10:44 Est GFR (Non-Af Amer) > 60 12/31/17 10:44 POC Glucose (mg/dL) 101 mg/dL (65-110) 12/29/17 19:46 Random Glucose 192 mg/dL (65-105) H 12/31/17 10:44 Calcium 8.8 mg/dl (8.6-10.4) 12/31/17 10:44 Phosphorus 3.3 mg/dL (2.5-4.5) 12/30/17 05:01 Magnesium 1.6 mg/dL (1.6-2.3) 12/30/17 05:01 Total Bilirubin 0.5 mg/dL (0.2-1.3) 12/31/17 10:44 AST 26 U/L (14-36) 12/31/17 10:44 ALT 24 U/L (9-52) 12/31/17 10:44 Alkaline Phosphatase 58 U/L (38-126) 12/31/17 10:44 Troponin I 0.0750 ng/mL (0.00-0.120) 12/29/17 21:55 Total Protein 6.8 g/dL (6.3-8.3) 12/31/17 10:44 Albumin 4.1 g/dL (3.5-5.0) 12/31/17 10:44 Globulin 2.6 gm/dL (2.2-3.9) 12/31/17 10:44 Albumin/Globulin Ratio 1.6 (1.0-2.1) 12/31/17 10:44 Urine Color Yellow (YELLOW) 12/30/17 02:33 Urine Clarity Clear (Clear) 12/30/17 02:33 Urine pH 6.0 (5.0-8.0) 12/30/17 02:33 Ur Specific [place] 1.015 (1.003-1.030) 12/30/17 02:33 Urine Protein Negative mg/dL (NEGATIVE) 12/30/17 02:33 Urine Glucose (UA) Normal mg/dL (Normal) 12/30/17 02:33 Urine Ketones 1+ mg/dL (NEGATIVE) H 12/30/17 02:33 Urine Blood Negative (NEGATIVE) 12/30/17 02:33 Urine Nitrate Negative (NEGATIVE) 12/30/17 02:33 Urine Bilirubin Negative (NEGATIVE) 12/30/17 02:33 Urine Urobilinogen Normal mg/dL (0.2-1.0) 12/30/17 02:33 Ur Leukocyte Esterase Neg [place]/uL (Negative) 12/30/17 02:33 Urine WBC (Auto) < 1 /hpf (0-5) 12/30/17 02:33 Urine RBC (Auto) 3 /hpf (0-3) 12/30/17 02:33 Urine Bacteria Rare (<OCC) 12/30/17 02:33 Attending/Attestation - Attestation I have personally seen and examined this patient.: Yes I have fully participated in the care of the patient.: Yes I have reviewed all pertinent clinical information, including history, physical exam and plan: Yes Notes (Text): 01/04/18 22:01 This is a late entry Care of this patient was gone over in detail with the resident. Please note that all discharge instructions were also gone over with the patient : Schedule follow up with your Primary Care Physician Dr. Valenzuela by calling . This appointment should take place at the beginning of next week. Through Dr. Valenzuela's office arrange for outpatient physical therapy. A precription for this physical therapy has been provided to you at the time of your discharge. Schedule follow up with Machine Trimmer Dr. Felipe by calling [phone]. This appointment should take place any time next week. Schedule follow up with Hand Surgeon Dr. Roque by calling [phone]. This appointment should take place no later than 01/07/18. Please have the following prescriptions filled at your pharmacy and take as directed. These should be the only medications that you should take: Eliquis 5 mg, 1 tablet by mouth 2x/day (8 AM and 8 PM), Dispense #60, NO refills Metoprolol 25 mg, 1 tablet by mouth 2x/day (8 AM and 8 PM). Dispense #60, NO refills You were provided with some Bacitracin. Please apply to the base of your third finger on the left hand 1x/day and then cover with the gauze as instructed and demonstrated to you at the time of your discharge. Please keep this area dry. Dr. Roque will remove the sutures at the time of your appointment with her and provide you with additional instructions. Please ice the right knee at least 4 times a day for at least 1 hour. While laying or sitting please keep the right leg elevated. Please take care and be well. Ranulfo Hermosillo D.O.
--- NOTE | 2018-01-01 16:10 | CP.PCM.PN ---
Subjective - Date & Time of Evaluation Date of Evaluation: 01/01/18 Time of Evaluation: 16:05 - Subjective Subjective: The pt went into atrial fibrillation. eliquis resumed, pt taking low dose beta yaw. Resting heart rate is 115 at this time. Objective - Vital Signs/Intake and Output Vital Signs (last 24 hours): Temp Pulse Resp BP Pulse Ox 97.7 F 108 H 20 120/82 98 01/01/18 07:38 01/01/18 12:00 01/01/18 07:38 01/01/18 07:38 01/01/18 08:25 Intake and Output: 01/01/18 01/01/18 06:59 18:59 Intake Total 300 Output Total 400 Balance -100 - Medications Medications: Current Medications Acetaminophen (Tylenol 325mg Tab) 650 mg PO Q6 PRN PRN Reason: Pain, moderate (4-7) Last Admin: 12/30/17 17:22 Dose: 650 mg Apixaban (Eliquis) 2.5 mg PO BID [facility] Last Admin: 01/01/18 09:43 Dose: 2.5 mg Bacitracin (Bacitracin) 1 gm TOP DAILY [facility] Last Admin: 01/01/18 09:43 Dose: 1 applic Metoprolol Tartrate (Lopressor) 12.5 mg PO BID [facility] Last Admin: 01/01/18 09:43 Dose: 12.5 mg - Labs Labs: 01/01/18 08:14 12/31/17 10:44 PT 11.6 SECONDS (9.7-12.2) 12/29/17 21:55 INR 1.1 12/29/17 21:55 APTT 34 SECONDS (21-34) 12/29/17 21:55 - Constitutional Appears: Well - Head Exam Additional comments: head trauma ecchymosis - Eye Exam Pupil Exam: PERRL - ENT Exam ENT Exam: Mucous Membranes Moist - Neck Exam Neck Exam: Full ROM - Respiratory Exam Respiratory Exam: Clear to Ausculation Bilateral - Cardiovascular Exam Cardiovascular Exam: Irregular Rhythm - GI/Abdominal Exam GI & Abdominal Exam: Normal Bowel Sounds - Exam Exam: NORMAL INSPECTION External exam: NORMAL EXTERNAL EXAM - Extremities Exam Extremities Exam: Normal Inspection - Back Exam Back Exam: NORMAL INSPECTION - Neurological Exam Neurological Exam: Alert, Awake, Oriented x3 - Psychiatric Exam Psychiatric exam: Normal Affect - Skin Skin Exam: Normal Color Assessment and Plan - Assessment and Plan (Free Text) Assessment: 1. Heart rate at rest is fast. Increase metprolol to 25 bid. 2. pt understands risks and benefits of eliquis, thinks falling was a one off, as she tripped. Will continue inview of recurrent atrial fib.
[2018-01-01 16:33] VITALS: BP 109/76; PULSE 97; TEMP 98.2; O2SAT 97
[2018-01-01 17:40] LABS: BASO % 0.3 % (0.0-2.0); EOS # 0.1 K/uL (0.0-0.7); EOS % 0.4 % (0.0-4.0); HEMOGLOBIN 11.8 g/dL (11.0-16.0); LYMPH % 15.7 % (20.0-40.0); MEAN CELL VOLUME 90.8 fL (81.0-99.0); MEAN CORPUSCULAR HEMOGLOBIN 30.8 pg (27.0-31.0); MEAN CORPUSCULAR HGB CONC 33.9 g/dL (33.0-37.0); MONO # 1.2 K/uL (0.0-0.8); MONO % 9.2 % (0.0-10.0); NEUT # 9.4 K/uL (1.8-7.0); NEUT % 74.4 % (50.0-75.0); RBC 3.84 Mil/uL (3.80-5.20); RED CELL DISTRIBUTION WIDTH 13.6 % (11.5-14.5); WHITE BLOOD COUNT 12.6 K/uL (4.8-10.8)
== END 2018-01-01 17:46 | disposition home or self-care (01) ==
LOC: C.ER 19:24 → C.9E 23:11 → C.5S 12-30 10:02
PROVIDERS: ADMIT Family Medicine; ATTEND Family Medicine
DX: S06.9X9A Unspecified intracranial injury with loss of consciousness of unspecified duration, initial encounter (principal); S61.213A Laceration without foreign body of left middle finger without damage to nail, initial encounter; I10 Essential (primary) hypertension; I48.91 Unspecified atrial fibrillation; M06.9 Rheumatoid arthritis, unspecified; I09.9 Rheumatic heart disease, unspecified; S00.83XA Contusion of other part of head, initial encounter; M81.0 Age-related osteoporosis without current pathological fracture; W10.9XXA Fall (on) (from) unspecified stairs and steps, initial encounter; S80.01XA Contusion of right knee, initial encounter
CPT/HCPCS: 20999; 36415; 70450; 70486; 71045; 73130; 73521; 73562; 73700; 80053; 81001; 82948; 83735; 84100; 84484; 85025; 85610; 85730; 90471; 90715; 93005; 93306; 96374; 96375; 96376; 97116; 97162; 99285; G0378; G8978; G8979; J2405